=== PATIENT | female | born 1960 | race Caucasian/White ===

== ENCOUNTER 2022-04-26 15:47 | Emergency (ER) | payer BC, SELFPAY ==
[2022-04-26 16:07] VITALS: BP 118/72; PULSE 79; RESP 16; TEMP 36.4; O2SAT 99; BMI 21.3
--- NOTE | 2022-04-26 16:17 | ED_ITS ---
HPI - Back Pain/Injury General Time Seen by Provider: 16:17 Date Seen: 04/26/22 Chief Complaint: Back Injury/Pain Stated Complaint: BACK PAIN Time Seen by Provider: 04/26/22 16:16 Source: patient, RN notes reviewed and old records reviewed Mode of arrival: ambulatory Limitations: no limitations History of Present Illness HPI Narrative: Ivon is a very pleasant 62-year-old female who states she is really quite healthy who comes to the emergency room for evaluation regarding back pain. Ivon states that over the past week she has noticed increasing discomfort and now definitely over the past 48 hours. This is similar to an incident back in 2020 at which time she was evaluated for heart problems. She notes that she was given prednisone and Flexeril and had significant relief of her symptoms. She states that she did have a flare a few months ago and was put into physical therapy which she thinks has helped. She does not know why over the past week and his son the gotten worse. She denies shortness of breath. She notes that this is exactly like the discomfort she experienced before. She has not had any lower extremity edema, fever or chills, lower extremity weakness nausea or vomiting. He has not had any COVID like symptoms. She cannot recall any moment where her back suddenly hurt more. She is requesting prednisone. She does experience spasm when she tries to move and pain is severe at that time. Patient states that the pain wraps around under both of her breast. Again, similar to previous pain. MD elicited complaint: back pain Pertinent past history: prior back pain Onset (ago): day(s) Associated symptoms: denies other symptoms Treatments prior to arrival: heat therapy and NSAIDS Work related injury: No Related Data Home Medications Medication Instructions Recorded Confirmed levothyroxine 88 mcg tablet mcg 04/26/22 Allergies Allergy/AdvReac Type Severity Reaction Status Date / Time lidocaine Allergy Intermediate Rash Verified 04/26/22 16:12 codeine AdvReac Intermediate Verified 04/26/22 16:12 Exam Narrative: Exam Narrative: PAST HISTORY:? Significant for palpitations with negative Holter monitoring, hypothyroidism, history of iron deficiency anemia.? She has had hernia repair, remote tonsillectomy and adenoidectomy and foot surgery. Const: Vital Signs, click to edit/add: Vital Signs - 24 hr 04/26/22 16:07 Temperature 97.6 F Pulse Rate [Pulse Oximeter] 79 Respiratory Rate 16 [facility] 118/72 Pulse Oximetry 99 Oxygen Delivery Me thod Room Air Documenting provider has reviewed patient's vital signs: yes Common normals: no apparent distress, average body habitus, oriented x3, no limitations, healthy appearing, alert and well nourished General appearance: cooperative, comfortable and well kempt HENMT: Common normals: normocephalic and head/scalp atraumatic Head and scalp: normocephalic and atraumatic Eye: Common normals: PERRL General eye: normal appearance of both eyes Pupil: PERRL Neck & C-Spine: Common normals: full ROM and supple Chest: Common normals: palpation of chest normal Resp: Common normals: normal respiratory effort and clear to auscultation bilaterally Effort & inspection: able to speak in complete sentences Auscultation: clear to auscultation bilaterally Cardio: Common normals: regular rate and regular rhythm Rate: regular rate Rhythm: regular rhythm GI: Common normals: soft to palpation Palpation: soft : Common normals: no CVA tenderness Bladder/kidney exam: no CVA tenderness Back & Pelvis: Common normals: no CVA tenderness Thoracic spine/upper back: normal to inspection, pain with ROM and paraspinal muscle tenderness (T5 through T7) Thoracic paraspinal muscle tenderness: bilateral; no thoracic spinal tenderness Lumbar spine/lower back: normal to inspection Extremity: Common normals: normal to inspection Neuro: Common normals: oriented x3 Sensorium/orientation: alert Speech: speech normal Gait (neuro): normal gait Psych: Common normals: mental status grossly normal and thought process normal Appearance: well kempt Thought process: normal thought process Skin: Common normals: no rashes or lesions noted General skin exam: no rashes or lesions noted Course Course Hospital Course: At this time patient appears to have a flare of thoracic back pain. However, she cannot identify any injury or specific moment when her pain was worse. I do feel at her age of 62 we should do a comparative x-ray to ensure that there is no acute thoracic compression fracture. At this time she wishes to hold off on any other medications. Vital Signs Vital signs: Initial Vital Signs Temperature 97.6 F 04/26/22 16:07 Temperature Source Temporal Artery Scan 04/26/22 16:07 Pulse Rate 79 04/26/22 16:07 Respiratory Rate 16 04/26/22 16:07 Blood Pressure 118/72 04/26/22 16:07 Blood Pressure Mean 87 04/26/22 16:07 Blood Pressure Position Supine 04/26/22 16:07 Pulse Oximetry 99 04/26/22 16:07 Oxygen Delivery Method 04/26/22 16:07 Vital Signs Temperature 97.6 F 04/26/22 16:07 Pulse Rate 79 04/26/22 16:07 Respiratory Rate 16 04/26/22 16:07 Blood Pressure 118/72 04/26/22 16:07 Pulse Oximetry 99 04/26/22 16:07 Oxygen Delivery Method 04/26/22 16:07 Temperature 97.6 F 04/26/22 16:07 Pulse Rate 79 04/26/22 16:07 Respiratory Rate 16 04/26/22 16:07 Blood Pressure 118/72 04/26/22 16:07 Pulse Oximetry 99 04/26/22 16:07 Oxygen Delivery Method 04/26/22 16:07 MDM - Back Pain/Injury MDM Narrative Medical decision making narrative: 1. Thoracic spine pain-x-rays do not appear to show any significant compression fracture. It appears to show chronic findings. Patient will start on prednisone 20 mg p.o. b.i.d. x7 days. Will also give Flexeril 10 mg p.o. t.i.d. p.r.n.. Both of these via [employer]. Recommend avoiding alcohol driving or other activities if using the Flexeril as this is sedating. If pain does not improve recommend MRI of the thoracic spine given the sudden return of discomfort. No red flag symptoms today. 2. Disposition-return for worsening symptoms especially loss of bowel or bladder control, lower extremity weakness, fever or chills. Medical Records Attestation: I reviewed the patient's medical records. Imaging Data Thoracic spine: Attestation: I have reviewed the pertinent imaging results. My impression: No acute findings Radiologist's impression: Mild loss of height of the left T7 vertebral body associated with mild scoliosis of the thoracic spine convex towards the right, unchanged from the previous AP view. Mild compression fracture of T7, cannot compared directly with the single view from the previous study, but I suspect that this is a chronic fracture. No sign of any additional compression fractures. Discharge Plan Discharge Clinical Impression: Thoracic back pain Patient Disposition: Home, Self-Care Condition: Unchanged Additional Instructions: Start prednisone 20 mg p.o. twice a day for 5 days. Please take with food or you may also use omeprazole or Pepcid as stomach protection. Flexeril as needed for muscle spasm. Do not use alcohol, drive or participate in activities which could be dangerous to you while on this medication which can be sedating. Prescriptions: No Action levothyroxine 88 mcg tablet Label Comments: TAKE 1 TABLET BY MOUTH BEFORE BREAKFAST Stand Alone Forms: [facility] Info Instructions
--- NOTE | 2022-04-26 16:28 | CRLHL7_ITS ---
For Patients: As a result of the Cures Act, medical imaging exams and procedure reports are released immediately into your electronic medical record. You may view this report before your referring provider. If you have questions, please contact your health care provider. INDICATION: Acute T5 through T7 discomfort. COMPARISON: COMPARISON DATE TECHNIQUE: AP and lateral views of the thoracic spine were obtained along with a cross-table swimmer`s view of the cervicothoracic junction for a total of three views. FINDINGS: There is stable mild loss of T7 vertebral body height on the left associated with mild scoliosis of the mid thoracic spine convex towards the left. This is seen as a mild T7 compression fracture on lateral view. Since I do not have a lateral view for comparison, I cannot state with certainty that this is a stable compression fracture, but the appearance on the AP view suggests that it is stable. The rest of the thoracic vertebral bodies are normal in height with no sign of additional compression fracture. There is mild T7-8 and T8-9 disc degenerative disease, similar appearance to the previous study on the AP view. The rest of the intervertebral discs are normal in height. The visualized portions of the chest are normal in appearance. IMPRESSION: Mild loss of height of the left T7 vertebral body associated with mild scoliosis of the thoracic spine convex towards the right, unchanged from the previous AP view. Mild compression fracture of T7, cannot compared directly with the single view from the previous study, but I suspect that this is a chronic fracture. No sign of any additional compression fractures. Dictated by Mau Kent MD @ 04/26/2022 5:31:29 PM (Electronically Signed)
--- OUTSIDE RECORDS SUMMARY | 2022-04-27 13:54 | XMS_ITS | Clinical Summary ---
:1960 Author Organization [facility] [place] [address] Care Team Providers Name Role Phone [facility] Primary Care Provider Unavailable Allergies Active Allergy Reactions Severity Noted Date Comments Lidocaine-Menthol Rash 07/27/2021 Medications Medication Sig Dispensed Refills Start Date End Date Status Ferrous Sulfate 27 mg Take by mouth. 0 02/26/2021 Active iron tab cholecalciferol Take 1 Capsule 0 02/26/2021 Active (Vitamin D) 1,000 (1,000 units) by unit capsule mouth once daily. valACYclovir TAKE 2 TABLETS AT 0 03/07/2021 Active (VALTREX) 1 gram ONSET AND 12 HOURS tablet LATER TAKE ANOTHER 2 TABLETS hydroquinone 4 % 0 04/29/2021 Ac tive cream pramipexole (MIRAPEX) Take 1 Tablet (0.5 90 tablet. 0 07/27/20 21 Active 0.5 mg mg) by mouth at tabletIndications: bedtime. Restless legs syndrome (RLS) levothyroxine Take 1 Tablet (88 90 Tablet 3 07/27/2021 Active (SYNTHROID) 88 mcg mcg) by mouth tabletIndications: before breakfast. Postablative hypothyroidism nirmatrelvir-ritonavi Take 2 30 Tablet 0 03/23/2022 02 r 300-100mg, EUA, nirmatrelvir 150 2 (PAXLOVID, EUA,) mg pink-oval tabletIndications: tablets and 1 COVID-19 virus ritonavir 100 mg infection white-oval tablet together twice daily for 5 days. Date of Symptom Onset: 03/21/22; gfr good today. Active Problems Problem Noted Date Prediabetes 07/27/2021 Hypertriglyceridemia 07/27/2021 Meningioma 11/07/2015 Overview: Followed by neurosurgery. Needs imaging annually, avoid hormone therapy YADI 08/31/2015 AHI-0, RDI-7 10/27/2015 Restless legs syndrome (RLS) 06/25/2014 Anemia, unspecified 11/17/2012 Overview: EGD 10/2012 normal Colonoscopy 10/2012 normal repeat in 10 y ears HCM 01/26/2006 Overview: colonoscopy 2004 HYPOTHYROIDISM NOS 12/06/2000 Resolved Problems Problem Noted Date Resolved Date Impaired fasting glucose 07/14/2007 07/27/2021 UPPER RESPIRATORY INFECTION - ACUTE 11/02/200412/31 Encounters Date Type Specialty Care Team Description 04/15/2022 Hospital Encounter Carolin Snow MD Lonetti, Jennifer D, PT 04/15/2022 Travel 04/01/2022 Hospital Encounter Carolin Snow MD Lonetti, Jennifer D, PT 04/01/2022 Travel 03/23/2022 Orders Only [facility] 03/23/2022 Orders Only Patricio Salmeron <No scans at tached> MD [facility] 03/23/2022 Travel 03/22/2022 Phone Office Visit Patricio Salmeron Phone Visit (COVID-19 MD [facility] concerns) 03/09/2022 Hospital Encounter Carolin Snow MD Lonetti, Jennifer D, PT 03/09/2022 Travel 02/23/2022 Hospital Encounter Carolin Snow MD Smith, Ryan K, PT 02/23/2022 Travel 02/10/2022 Hospital Encounter Carolin Snow MD Smith, Ryan K, PT 02/10/2022 Travel from Last 3 Months Immunizations Name Administration Dates Next Due Hepatitis B (Peds) 03/29/2003, 08/29/2002, 07/19/2002 Influenza, IIV3 (Age >=3 years) 06/18/2013, 06/12/2012, 04/02, 06/24/2010, 06/18/2003 Influenza, IIV4 06/04/2019, 05/11/2014 Td (Age >=7 Years) 07/27/2021 Tdap 06/24/2010 Zoster (Shingrix-RZV, recombinant) 08/13/2019, 06/06/2019 Family History Medical History Relation Name Comments Heart Disease Brother Diabetes Father Good Health Mother Heart Disease Mother Genetic Other CAD-mother and g randmother,/CAD-mother and grandmother,~col on cancer- MGM~fatehr- DM/CAD-mother an d grandmother,~colon cancer- MGM~fath er- DM Heart Disease Paternal Grandmother Relation Name Status Comments Brother Alive Father Maternal Grandfather Maternal Grandmother Mother Alive Other Paternal Grandfather Paternal Grandmother Social History Tobacco Use Types Packs/Day Years Used Date Never Smoker Smokeless Tobacco: Never Used Tobacco Cessation: Counseling Given: Yes Alcohol Use Standard Drinks/Week Comments Yes 0 (1 standard drink = 0.6 oz pure alcoho l) occasional Alcohol Habits Answer Date Recorded How often do you have a drink containing alcohol? Monthly or less 11/30/2018 How many drinks containing alcohol do you have on a 1 or 2 11/30/2018 typical day when you are drinking? How often do you have six or more drinks on one Never 11/30/2018 occasion? Comment: occasional 12/29/2021 Sex Assigned at Date Recorded Not on file COVID-19 Exposure Response Date Recorded In the last 10 days, have you been in contact with No / Unsu re 04/15/2022 4:51 PM CDT someone who was confirmed or suspected to have Coronavirus/COVID-19? Obstetrics History Last Filed Vital Signs Vital Sign Reading Time Taken Comments Blood Pressure 104/70 12/29/2021 12:48 PM CDT Pulse 74 12/29/2021 12:48 PM CDT Temperature 36.6 ??C (97.8 ??F) 12/29/2021 12:48 PM CDT Respiratory Rate 15 07/27/2021 10:36 AM [employer] Oxygen Saturation 100% 02/26/2021 3:24 PM CDT Inhaled Oxygen Concentration - - Weight 65.8 kg (145 lb) 12/29/2021 12:48 PM CDT Height 167.6 cm (5' 6) 12/29/2021 12:48 PM CDT Body Mass Index 23.4 12/29/2021 12:48 PM CDT Plan of Treatment Upcoming Encounters Date Type Specialty Care Team Description 04/29/20[place] [id number] [place], [place] [phone] (Wo rk) 05/06/2022 [place] [id number] [place], [place] [phone] (Wo rk) Health Maintenance Due Date Last Done Comments COVID-19 vaccine series (#1) 1960 Pap test for age 21-65 08/09/2016 08/09/2013, 01/29/2009 (Completed outside of [facility]) Influenza for age 50-64 04/01/2022 06/04/2019, 05/11/2014, 06/18/2013, Additional history exists Depression screening for age 12+ 07/27/2022 07/27/2021, , 09/08/2017, Additional history exists Mammogram for age 45-75 08/18/2022 08/18/2021, 09/29/2016, 09/02/2015, Additional history exists Colonoscopy through age 75 11/23/2022 11/23/2012 BMI (ht and wt on same day) for 12/29/2022 12/29/2021, 07/02, age 18+ 06/04/2019, Additional history exists Lipids for age 45-75 07/27/2026 07/27/2021, 09/22/2012, 01/29/2009 (Completed outside of [facility]), Additional history exists Tetanus booster 07/27/2031 07/27/2021, 12/14/2010 (Completed outside of [facility]), 06/24/2010 Tdap Completed 06/24/2010 Zoster (shingles) series for age Completed 08/13/2019, 12/2018 50+ Hepatitis C screening for age Completed 07/27/2021 18-79 Procedures Procedure Name Priority Date/Time Associated Diagnosis Comme nts CREATININE,ISTAT Routine 03/23/2022 10:03 AM COVID-19 virus Re sults for this CDT infection procedure are i n the results section. from Last 3 Months Results (ABNORMAL) CREATININE,ISTAT (03/23/2022 10:03 AM CDT) P athologist Signature CREATININE, 0.90 0.57 - 03/23/2022 [facility] POCT 1.11 mg/dL 10:11 AM CDT [facility] Comment: Caution: Patients taking Hydrox yurea have falsely increased iStat Creatinine results. Verify creatinine results order ing a Creatinine (27784.2) eGFR 73 (L) >90 mL/min/1.73m2 03/23/2022 10:11 AM CD T [facility] Comment: As of 2021, eGFR is calcu lated by the CKD-EPI creatinine equation without race adjustment. eGFR can be inf luenced by muscle mass, exercise, and diet. The reported eGFR is an estimation only and is only applicable if the renal function is stable. Specimen Anatomical Collection Method Collection Time Receive d Time (Source) Location / / Volume Laterality Blood BLOOD SPECIMEN / 03/23/2022 10:03 022 Unknown AM CDT 10:11 AM CDT Patricio Salmeron MD CHEMISTRY Performing Organization Address City/State/ZIP Code Phon e Number [facility] [address] [place], [place] [address] CLINIC from Last 3 Months Insurance Payer Benefit Plan / Subscriber ID Effective Dates Phone Addre ss Type Group [id number] 2016-Present [address] [place] [address] Care Teams Latent Print Examiner Relationship Specialty Start Date End Date [facility] PCP - General 11/07/17
== END 2022-04-26 17:43 | disposition home or self-care (01) ==
PROVIDERS: Emergency Provider Family Medicine
DX: M54.6 Pain in thoracic spine (principal)
CPT/HCPCS: 72070; 99283; 99284

== ENCOUNTER 2024-04-28 17:32 | Emergency (ER) | payer OTHER, BC, SELFPAY ==
--- OUTSIDE RECORDS SUMMARY | 2024-04-28 17:35 | XMS_ITS ---
Author Organization [facility] Address [address] [place] [address] [address] [place] [address] Care Team Providers Care In Store Representative Name Role Phone Yves Phill Primary Care Provider [phone] Geoff HERRERA, PhD, Gabino Unavailable Unavai Penelope Wilkerson Unavailable [phone] Encounters Encounter Location Date Provider Diagnosis [facility] [address] [place] [address] 03/21/2024 Penelope Jorgensen Pain in thoracic spine M54.6 and Unspecified thoracic, thoracolumbar and lumbosacral intervertebral disc disorder M51.9 Assessments Encounter Date Diagnosis (ICD Code) Assessment Notes Treat ment Notes Treatment Clinical Notes 03/21/2024 Pain in thoracic spine (ICD-10 - M54.6) 03/21/2024 Unspecified thoracic , thoracolumbar and lumbosacral intervertebral disc disorder (ICD-10 - M51.9) Plan Of Treatment No Information Progress Notes * Gilles DOUGLASB:1960 (64 yo F)Acc No.[id number]:03/21/2024 Daily Note Patient:?Ivon DOUGLAS Provider:?Penelope Jorgensen DPT :1960???Age:64 Y???Sex:Female D ate:03/21/2024 Phone: Address:[facility] [address] [place] [id number] Pcp:Phill Douglas Subjective: * Chief Complaints: * HPI: ???Therapy Visit Status:?Session Data?Date Reviewed?03/21/2024 ?Therapy Episode Status?Discharged or Discharge Plan < 2 visits ?Therapy Sessions Completed (#)?21 ?PT Goal Review Date?03/07/2024 ?OT Goal Review Date?12/28/2023 ???Therapy Visit Subjective:?Pt feels good today, not too sore. Discussed D/C again today, pt wants to wait until after her RFA (morro'd next 03/29) to be done w/ therapy. Will make this appt at a later time but would feel more comfortable waiting until afterwards to D/C. Notes that if she decides to not come in for her final D/C appt she will call and let us know. Objective: * Vitals:? * Examination: ???Functional Exam & Tests: ?Single Leg Stance Test?30 sec Chair Rise Test? * Physical Examination:?Cervical Extension Positioning & Goals:?Positioning?Seat Height?530 ?TDC?51 ?CB?1.4 ?Seat Pad?1 inch pad ?Goals?Low Goal Female (Max 192)?192 ?High Goal Female (Max 222)?222 ???Cervical Extension Exercise Performance:?Exercise?Torque (in-lbs)?132 ?Extension ROM (0)?18 ?Flexion ROM (126)?108 ?Last Rep Status?Met Exertion Goal, Met Repetition Goal ?Exercise Plan?2 x week ???Lumbar Extension Positioning & Goals:?Positioning?TDC?21 ?CB?150 ?Femur?4 ?Seat Pad?1 inch pad ?Goals?Low Goal Female >60age (40%BW)?55 ?High Goal Female>60age (60%BW, Max 150)?82 ???Lumbar Extension Exercise Performance:?Exercise?Torque (ft-lbs)?60 ?Extension ROM (0)?0 ?Flexion ROM (72)?60 ?Repetitions?22 ?Rating of Perceived Exertion (0-10)?10 ?Last Rep Status?Met Exertion Goal, Met Repetition Goal ?Exercise Plan?2 x week ???Torso Rotation Positioning & Goals:?Positioning?Meherrin?1.3 ?Footboard?1 ?Seat Pad?1 inch ?Back Pad?Back Pad 1 inch ?Other?Cervical Roll ?Goals?Low Goal Female >Age 60 (25%BW)?32 ?High Goal Female >Age 60 (30%BW, Max 60)?41 ???Torso Rotation Exercise Performance:?Exercise?Torque (ft-lbs)?35 ?Rotation Left (48)?42 ?Rotation Right (48)?42 ?Left Repetitions?30 ?Right Repetitions?30 ?RPE (0-10)?9 ?Last Rep Status?Met Exertion Goal, Met Repetition Goal ?Exercise Plan?2 x week ???Isotonic Exercise Machine Summary:?Exercise Summary?Worked through all 3 MedX machines today. Pt able to work on increasing/maintaining reps for TR, she is in goal range for this machine, maintained same weight. Maintained same weight for LE today, focused on progressing reps, able to do 22 reps, felt it was more difficult today, performed at TR, that could have impacted this. In goal range for LE. Increased load for CE & went back to 18-108 ROM, focused on increasing reps too.?Pt is still nearing CE goal range, not quite at her end low range yet but slowly progressing loads and is getting closer..?Billing?[id number] (Therapeutic Exercise) Direct 1:1 Time= 30 mins.? Therapeutic Interventions: * Therapeutic Interventions: ???1.?Home Exercise List: Stretches & Releases ? Neck Stretching HEP : Upper Trapezius, Levator Scapulae ? Rwhum-Qdcv-[id number] Stretching HEP : Pectorals- Doorway, Upper Body Mobilization (supine), Scapular and Thoracic Stretch (Needle) - Quadruped ? Low Back and Hip Stretching HEP : Trunk Rotation (supine with arms at 90 degrees palms up) - HOLD due to pain , Cat back- HOLD due to pain, Melissa pose - modified to seated position for rock back/QL ???2.?Home Exercise List: Strength ? Mid-Back Strength HEP : Standing Rows, Pallof Press, Band Pull Apart ? Low Back & Core Strength HEP : Alt Arm & Leg Lift 4-point, Lower Abdominal L3 , Bridges (floor), Lower Abdominal L4 ? Hip & Core Strength HEP : Sit to Stand L1 ? Functional Strength HEP : Lift (no weight and bottom at wall) ???3.?Endurance Training ? Stationary Bike : Performed as a warm up prior to session ???4.?Movement Therapy Summary ? Movement Therapy Details : Pt feels good w/ her HEP, has multiple color therabands at home to progress exercises (yellow, red & green.) Performed 2 fxn'l tests from initial PT eval. Pt plans on D/C'ing next session after her RFA. See in exam section. Pt increased her SLS test & 30 sec chair rise test. Spent additional time reviewing CORE machines, pt has [employer], membership and wanted to see if any machines were comparable. Went through CORE LE, CORE TR & CORE CE. Pt demo'd each of them, took pictures to compare to machines and was educated on proper weight progression and positioning. Also recommended pt talk to staff at [facility], about set-up, instructions, and proper use of their equipment. ? Billing : [id number] (Therapeutic Exercise) Direct 1:1 Time= 25 mins ? Assessment: * Therapy Assessment and Plan: 1.?Therapy Session Assessment ? Summary : Pt is doing well today. After given time to think about her D/C plan, wants to wait to D/C until after her RFA schl'd 03/26, plans on morro'ing her D/C appt for after that date. Feels good about the concept of D/C'ing but wants to progress medX & HEP another time after her RFA. Pt will call in and let us know if this plan changes. Maintained same weights for TR & LE, pt in goal range, and focused on increasing reps. Increased load for CE, still below goal range, able to complete adequate reps. Reviewed gym equipment that pt may have accessible at [facility],, reviewed CORE machines, took pictures of equipment here to compare at her gym. 2.?Therapy Session Plan ? Plan Details : *Patient Valued Goals/Activities: standing, walking,*MD/ANIRUDH Follow Up Plan: after 4-6 weeks,*Visits Need Insurance Auth after: NA,* Incoming Referral Tracking - NO,Plan:- D/C next session - pt will call to schedule, has RFA schl'd on 03/26, prefers to D/C after this, will call to let us know if she plans on not returning- Finalize HEP- Continue progressing MedX Machines (CE/LE/TR) ? * Assessment: 1.?Pain in thoracic spine - M54.6 (Primary)???2.?Unspecified thoracic, thoracolumbar and lumbosacral intervertebral disc disorder - M51.9??? Plan: * Treatment: * Procedure Codes:?40301 Thera peutic Exercise PT, Units: 4.00 , Modifiers: GP , Time (Mins): 702486 * Billing Information: * Visit Code:? * Procedure Codes:? 55778 Therapeutic Exercise PT. Units: 4.00. Time (Mins):55Modifiers: GP * Sign off status: Completed true * Provider:?Penelope Jorgensen DPT Date:? Generated for Sujey whyte/Rosalino/Alka on:?04/28/2024 05:35 PM CDT History and Physical Notes * HPI (History of Present Illness) Category Sub-Category Detail Notes Therapy Visit Status Session Data Today's Session Date : 03/21/2024 Therapy Episode Status: Discharged or Di scharge Plan < 2 visits Therapy Sessions Completed (#): 21 PT Goal Review Date: 03/07/2024 OT Goal Review Date: 12/28/2023 Physical Examination Category Sub-Category Detail Notes Lumbar Extension Exercise Performance Exercise Tor que (ft-lbs): 60 Extension ROM (0): 0 Flexion ROM (72): 60 Repetitions: 22 Rating of Perceived Exertion (0-10): 10 Last Rep Status: Met Exertion Goal, Met Repetition Goal Exercise Plan: 2 x week Lumbar Extension Positioning & Goals Positioning TDC: 21 CB: 150 Femur: 4 Seat Pad: 1 inch pad Goals Low Goal Female >60age (40%BW): 55 High Goal Female>60age (60%BW, Max 150): 82 Isotonic Exercise Machine Summary Billing [id number] (Therapeutic Exercise) Direct 1:1 Time= 30 mins Exercise Summary Worked through all 3 MedX machines today. Pt able to work on increasing/maintaining reps for TR, she is in goal range for this machine, maintained same weight. Maintained same weight for LE today, focused on progressing reps, able to do 22 reps, felt it was more difficult today, performed at TR, that could have impacted this. In goal range for LE. Increased load for CE & went back to 18-108 ROM, focused on increasing reps too. Pt is still nearing CE goal range, not quite at her end low range yet but slowly progressing loads and is getting closer. Cervical Extension Positioning & Goals Positioning Se at Height: 530 TDC: 51 CB: 1.4 Seat Pad: 1 inch pad Goals Low Goal Female (Max 192): 192 High Goal Female (Max 222): 222 Cervical Extension Exercise Performance Exercise T orque (in-lbs): 132 Extension ROM (0): 18 Flexion ROM (126): 108 Last Rep Status: Met Exertion Goal, Met Repetition Goal Exercise Plan: 2 x week Torso Rotation Positioning & Goals Positioning Meherrin: 1.3 Footboard: 1 Seat Pad: 1 inch Back Pad: Back Pad 1 inch Other: Cervical Roll Goals Low Goal Female >Age 60 (25%BW): 32 High Goal Female >Age 60 (30%BW, Max 60) : 41 Torso Rotation Exercise Performance Exercise Torqu e (ft-lbs): 35 Rotation Left (48): 42 Rotation Right (48): 42 Left Repetitions: 30 Right Repetitions: 30 RPE (0-10): 9 Last Rep Status: Met Exertion Goal, Met Repetition Goal Exercise Plan: 2 x week Examination Category Sub-Category Detail Notes Functional Tests Single Leg Stance Test Single L eg Stance Test Description:: Balance test, Stand on one leg with hands on hips. Time begins when foot leaves the ground and ends with touch down, or change in position. < 5 sec predicts falls Left Single Leg Stance Score: Ave 3 Tria ls: 30 Right Single Leg Stance Score: Ave 3 Tri als (sec): 30 30 sec Chair Rise Test 30 sec Chair Rise Test Description: Lower extremity functional strength test. Begin seated with arms crossed on shoulders. Without using arms, sit to stand from 17'' height, reps in 30 sec 30 sec Chair Rise Test Norms: Female Age 60-64: Fall Risk < 12 30 Sec Chair Rise Test Score (reps): 15
--- OUTSIDE RECORDS SUMMARY | 2024-04-28 17:36 | XMS_ITS | Patient Health Record ---
Author Organization [facility] Address [address] [place] [address] [address] [place] [address] Care Team Providers Care Associate Chemist Name Role Phone YvesPhill Primary Care Provider [phone] Geoff HERRERA, PhD, Gabino Unavailable Susannei Thony Alexander Unavailable [phone] Stormy Daria Unavailable [phone] Naz Blackburn Unavailable [phone] Jeramy Hook Unavailable [phone] Bety Durand Unavailable [phone] Eric Gilmore Unavailable [phone] Clarissa Queen Unavailable [phone] Dalia Patel Unavailable [phone] Penelope Jorgensen Unavailable [phone] Allergies Allergen (clinical drug ingredient) Drug/Non Drug Allergy documented on EMR Reaction Allergy Type Onset Date Status lidocaine w/ preservatives (uncoded) Unknown Allergy Active Reason For Referral Reason REHAB PT and OT: MED X LUMBAR May use cervical extension as well. Diagnosis 1 Pain in thoracic spi ne (M54.6) Diagnosis 2 Unspecified thoracic , thoracolumbar and lumbosacral intervertebral disc disorder (M51.9) Referral Organization [facility] Referring Provider First Name Phill Referring Provider Last Name Yves Referring Provider Speciality Occupation al Medicine Referred Organization [facility] Referred Provider Kathy Wiggins Referred Address [address] [place], [place],[address],[place] Referred Provider Specialty Rehabilitati on General Notes Olivia Walsh 11/09/19 02:19:46 PM >BCBS no PA req. OK to schedule, Isaura Logan 11/09/2023 02:49:47 PM >Therapy is scheduled. Referral Priority Routine Medications Medication SIG (Take, Route, Frequency, Duration) Notes Start Date End Date Status Eye Vitamins Active Vitamin D Active Calcium Active Levothyroxine Sodium 88 MCG TAKE 1 TABLET BY MOUTH BEFORE BREAKFAST Oral for 90 Days Active Meloxicam 7.5 MG TAKE 1 TO 2 TABLETS BY MOUTH ONCE DAILY DO NOT TAKE WITH IBUPROFEN Oral for 30 Days Not-Taking TENS/NMES Unit Use as directed Please call patient at [phone]. 01/02/2024 Active Azelastine HCl 137 MCG/SPRAY INHALE 2 SPRAYS INTO AFFECTED NOSTRILS TWO TIMES DAILY Nasal for 25 Days Not-Taking Social History Tobacco Use: Social History Observation Description Date Details (start date - stop date) Never Smoker NA - NA Tobacco Use/Smoking: Question Answer Notes Are you a nonsmoker Alcohol Screen Question Answer Notes Did you have a drink containing alcohol in the p ast year? No Points 0 Interpretation Negative Problems Problem Type SNOMED Code ICD Code Onset Dates Problem Status W/U Status Risk Notes Problem Intervertebral disc disorder (51153474) Unspecified thoracic, thoracolumbar and lumbosacral intervertebral disc disorder (M51.9) Active confirmed Problem Pain in thoracic spine (154846223) Pain in thoracic spine (M54.6) Active confirmed Vital Signs Blood pressure diastolic 72 mm Hg 11/08/2023 Height 65 in 11/08/2023 Blood pressure systolic 126 mm Hg 11/08/2023 Weight 137 lbs 11/08/2023 BMI 22.8 kg/m2 11/08/2023 Encounters Encounter Location Date Provider Diagnosis [facility] [address] [place] [address] 11/08/2023 Phill Yves Pain in thoracic spine M54.6 and Unspecified thoracic, thoracolumbar and lumbosacral intervertebral disc disorder M51.9 [facility] [address] [place] [address] 11/29/2023 Jeramy Catatyanajuana Pain in thoracic spine M54.6 and Unspecified thoracic, thoracolumbar and lumbosacral intervertebral disc disorder M51.9 [facility] [address] [place] [address] 12/01/2023 Dalia Patel Pain in thoracic spine M54.6 and Unspecified thoracic, thoracolumbar and lumbosacral intervertebral disc disorder M51.9 [facility] [address] [place] [address] 12/08/2023 Naz Applebee Pain in thoracic spine M54.6 [facility] [address] [facility] [place] [address] 12/12/2023 Bety Dauner Pain in thoracic spine M54.6 and Unspecified thoracic, thoracolumbar and lumbosacral intervertebral disc disorder M51.9 [facility] [address] [facility] [place] [address] 12/14/2023 Clarissa zzTeachout Pain in thoracic spine M54.6 and Unspecified thoracic, thoracolumbar and lumbosacral intervertebral disc disorder M51.9 [facility] [address] [facility] [place] [address] 12/19/2023 Bety Dauner Pain in thoracic spine M54.6 and Unspecified thoracic, thoracolumbar and lumbosacral intervertebral disc disorder M51.9 [facility] [address] [place] [address] 12/21/2023 Clarissa zzTeachout Pain in thoracic spine M54.6 and Unspecified thoracic, thoracolumbar and lumbosacral intervertebral disc disorder M51.9 [facility] [address] [place] [address] 12/28/2023 Clarissa zzTeachout Pain in thoracic spine M54.6 and Unspecified thoracic, thoracolumbar and lumbosacral intervertebral disc disorder M51.9 [facility] [address] [facility] [place] [address] 12/30/2023 Daria Missling Pain in thoracic spine M54.6 and Unspecified thoracic, thoracolumbar and lumbosacral intervertebral disc disorder M51.9 [facility] [address] [facility] [place] [address] 02/07/2024 Penelope [place] Pain in thoracic spine M54.6 and Unspecified thoracic, thoracolumbar and lumbosacral intervertebral disc disorder M51.9 [facility] [address] [facility] [place] [address] 02/10/2024 Penelope [place] Pain in thoracic spine M54.6 and Unspecified thoracic, thoracolumbar and lumbosacral intervertebral disc disorder M51.9 [facility] [address] [place] [address] 02/13/2024 Clarissa zzTeachout Pain in thoracic spine M54.6 and Unspecified thoracic, thoracolumbar and lumbosacral intervertebral disc disorder M51.9 [facility] [address] [place] [address] 02/16/2024 Eric Deirdre Pain in thoracic spine M54.6 and Unspecified thoracic, thoracolumbar and lumbosacral intervertebral disc disorder M51.9 [facility] [address] [place] [address] 02/21/2024 Penelope Joslyn Pain in thoracic spine M54.6 and Unspecified thoracic, thoracolumbar and lumbosacral intervertebral disc disorder M51.9 [facility] [address] [place] [address] 02/24/2024 Penelope [place] Pain in thoracic spine M54.6 and Unspecified thoracic, thoracolumbar and lumbosacral intervertebral disc disorder M51.9 [facility] [address] [facility] [place] [address] 03/05/2024 Penelope Joslyn Pain in thoracic spine M54.6 and Unspecified thoracic, thoracolumbar and lumbosacral intervertebral disc disorder M51.9 [facility] [address] [place] [address] 03/07/2024 Penelope Joslyn Pain in thoracic spine M54.6 and Unspecified thoracic, thoracolumbar and lumbosacral intervertebral disc disorder M51.9 [facility] [address] [place] [address] 03/12/2024 Penelope Joslyn Pain in thoracic spine M54.6 and Unspecified thoracic, thoracolumbar and lumbosacral intervertebral disc disorder M51.9 [facility] [address] [facility] [place] [address] 03/14/2024 Penelope Joslyn Pain in thoracic spine M54.6 and Unspecified thoracic, thoracolumbar and lumbosacral intervertebral disc disorder M51.9 [facility] [address] [place] [address] 03/19/2024 Penelope Joslyn Pain in thoracic spine M54.6 and Unspecified thoracic, thoracolumbar and lumbosacral intervertebral disc disorder M51.9 [facility] [address] [facility] [facility] [place] [address] 03/21/2024 Penelope [place] Pain in thoracic spine M54.6 and Unspecified thoracic, thoracolumbar and lumbosacral intervertebral disc disorder M51.9 [facility] [address] [place] [address] [address] [place] [address] 10/19/2023 Thony Aldridge [facility] [address] [facility] [place] [address] 12/28/2023 Phill Marinelli Assessments Encounter Date Diagnosis (ICD Code) Assessment Notes Treatment Notes Treatment Clinical Notes 11/08/2023 Unspecified thoracic, thoracolumbar and lumbosacral intervertebral disc disorder (ICD-10 - M51.9) 11/08/2023 Pain in thoracic spine (ICD-10 - M54.6) 11/29/2023 Unspecified thoracic, thoracolumbar and lumbosacral intervertebral disc disorder (ICD-10 - M51.9) 11/29/2023 Pain in thoracic spine (ICD-10 - M54.6) 12/01/2023 Unspecified thoracic, thoracolumbar and lumbosacral intervertebral disc disorder (ICD-10 - M51.9) 12/01/2023 Pain in thoracic spine (ICD-10 - M54.6) 12/08/2023 Pain in thoracic spine (ICD-10 - M54.6) 12/12/2023 Unspecified thoracic, thoracolumbar and lumbosacral intervertebral disc disorder (ICD-10 - M51.9) 12/12/2023 Pain in thoracic spine (ICD-10 - M54.6) 12/14/2023 Unspecified thoracic, thoracolumbar and lumbosacral intervertebral disc disorder (ICD-10 - M51.9) 12/14/2023 Pain in thoracic spine (ICD-10 - M54.6) 12/19/2023 Unspecified thoracic, thoracolumbar and lumbosacral intervertebral disc disorder (ICD-10 - M51.9) 12/19/2023 Pain in thoracic spine (ICD-10 - M54.6) 12/21/2023 Unspecified thoracic, thoracolumbar and lumbosacral intervertebral disc disorder (ICD-10 - M51.9) 12/21/2023 Pain in thoracic spine (ICD-10 - M54.6) 12/28/2023 Unspecified thoracic, thoracolumbar and lumbosacral intervertebral disc disorder (ICD-10 - M51.9) 12/28/2023 Pain in thoracic spine (ICD-10 - M54.6) 12/30/2023 Unspecified thoracic, thoracolumbar and lumbosacral intervertebral disc disorder (ICD-10 - M51.9) 12/30/2023 Pain in thoracic spine (ICD-10 - M54.6) 02/07/2024 Unspecified thoracic, thoracolumbar and lumbosacral intervertebral disc disorder (ICD-10 - M51.9) 02/07/2024 Pain in thoracic spine (ICD-10 - M54.6) 02/10/2024 Unspecified thoracic, thoracolumbar and lumbosacral intervertebral disc disorder (ICD-10 - M51.9) 02/10/2024 Pain in thoracic spine (ICD-10 - M54.6) 02/13/2024 Unspecified thoracic, thoracolumbar and lumbosacral intervertebral disc disorder (ICD-10 - M51.9) 02/13/2024 Pain in thoracic spine (ICD-10 - M54.6) 02/16/2024 Unspecified thoracic, thoracolumbar and lumbosacral intervertebral disc disorder (ICD-10 - M51.9) 02/16/2024 Pain in thoracic spine (ICD-10 - M54.6) 02/21/2024 Unspecified thoracic, thoracolumbar and lumbosacral intervertebral disc disorder (ICD-10 - M51.9) 02/21/2024 Pain in thoracic spine (ICD-10 - M54.6) 02/24/2024 Unspecified thoracic, thoracolumbar and lumbosacral intervertebral disc disorder (ICD-10 - M51.9) 02/24/2024 Pain in thoracic spine (ICD-10 - M54.6) 03/05/2024 Unspecified thoracic, thoracolumbar and lumbosacral intervertebral disc disorder (ICD-10 - M51.9) 03/05/2024 Pain in thoracic spine (ICD-10 - M54.6) 03/07/2024 Pain in thoracic spine (ICD-10 - M54.6) 03/12/2024 Pain in thoracic spine (ICD-10 - M54.6) 03/14/2024 Pain in thoracic spine (ICD-10 - M54.6) 03/19/2024 Pain in thoracic spine (ICD-10 - M54.6) 03/21/2024 Pain in thoracic spine (ICD-10 - M54.6) 03/21/2024 Unspecified thoracic, thoracolumbar and lumbosacral intervertebral disc disorder (ICD-10 - M51.9) 03/19/2024 Unspecified thoracic, thoracolumbar and lumbosacral intervertebral disc disorder (ICD-10 - M51.9) 03/14/2024 Unspecified thoracic, thoracolumbar and lumbosacral intervertebral disc disorder (ICD-10 - M51.9) 03/12/2024 Unspecified thoracic, thoracolumbar and lumbosacral intervertebral disc disorder (ICD-10 - M51.9) 03/07/2024 Unspecified thoracic, thoracolumbar and lumbosacral intervertebral disc disorder (ICD-10 - M51.9) 11/08/2023 Other I, Miko Tolentino , am serving as a scribe to document services personally performed by Phill Marinelli MD, based upon my observations and the provider's statements to me. All documentation has been reviewed by the aforementioned doctor prior to being entered into the official medical record. I, Phill Marinelli MD attest that the above named individual is acting in scribe capacity, has observed my performance of the services and has documented them in accordance with my direction. The documentation recorded by the scribe accurately reflects the service I personally performed and the decisions made by me. Thank you very much Dr. Tellez for kindly referring Ivon to our practice. It is a pleasure to participate in her care. Please feel free to contact me with any questions or concerns. Plan Of Treatment No Information Insurance Providers Payer Name Payer Address Payer Phone Subscriber Number Group Number Insured Name Patient Relationship to Insured Coverage Start Date Coverage End Date [facility] [address] [address] [place] [address] [id number] Ivon Marinelli Self - patient is the insured Medical (General) History Medical History History ICD Code Melanoma Headaches Hernia Thyroid Problems Surgical History Surgery Date(Month/Year) Tonsillectomy Adenoidectomy Foot Right Hernia Hospitalization History Reason Date(Month/Year) Surgical
--- OUTSIDE RECORDS SUMMARY | 2024-04-28 17:36 | XMS_ITS | Clinical Summary ---
Author Organization [facility] Address [place], [place] [address] Care Team Providers Care Environmental Conservation Officer Name Role Phone [facility] Primary Care Provider Unavailabl e Allergies No known active allergies Medications Medication Sig Dispensed Refills Start Date End Date Status cholecalciferol (Vitamin D) 1,000 unit capsule Take 1 Capsule (1,000 units) by mouth once daily. 0 02/26/2021 Active valACYclovir (VALTREX) 1 gram tablet TAKE 2 TABLETS AT ONSET AND 12 HOURS LATER TAKE ANOTHER 2 TABLETS 03/07/2021 Active hydroquinone 4 % cream 04/29/2021 Ac tive vit C,T-Lc-zbrwa-lutein-ze axan (PreserVision AREDS-2) capsule Take 1 Capsule by mouth once daily. 0 09/16/2022 Active azelastine 137 mcg/actuation (ASTELIN) nasal sprayIndications:Nonal lergic rhinitis Inhale 2 Sprays into affected nostril(s) two times daily. 30 mL 6 03/30/2023 Active calcium carbonate (CALCIUM 300 ORAL) Take by mouth. Ac tive cyanocobalamin (Vitamin B-12) 1,000 mcg tabletIndications:Emily min B12 deficiency Take 1 Tablet (1,000 mcg) by mouth once daily. 90 Tablet 3 06/21/2023 Active levothyroxine (SYNTHROID) 88 mcg tabletIndications:Post ablative hypothyroidism TAKE 1 TABLET BY MOUTH BEFORE BREAKFAST 90 Tablet 1 10/27/2023 Active Active Problems Problem Noted Date Diagnosed Date Vitamin B12 deficiency 06/21/2023 Prediabetes 07/27/2021 Hypertriglyceridemia 07/27/2021 Meningioma 11/07/2015 Overview (11/07/2015): Followed by neurosurgery. Needs imaging annually, avoid hormone therapy YADI 08/31/2015 AHI-0, RDI-7 10/27/2015 Restless legs syndrome (RLS) 06/25/2014 Anemia, unspecified 11/17/2012 Overview (11/23/2012): EGD 10/2012 normal Colonoscopy 10/2012 normal repeat in 10 years HCM 01/26/2006 Overview (01/26/2006): colonoscopy 2005 HYPOTHYROIDISM NOS 12/06/2000 Resolved Problems Problem Noted Date Diagnosed Date Resolved Date Impaired fasting glucose 07/14/2007 UPPER RESPIRATORY INFECTION - ACUTE 11/02/2004 01/26/2006 Immunizations Name Administration Dates Next Due Hepatitis B (Peds) 03/29/2003,08/29/2002, 002 Influenza, IIV3 (Age >=3 years) 06/18/20 13,06/12/2012,04/28/2011,06/24/20 10,06/18/2003 Influenza, IIV4 06/04/2019,05/11/2014 Td (Age >=7 Years) 07/27/2021 Tdap 06/24/2010 Zoster (Shingrix-RZV, recombinant) 08/13/2019, Family History Medical History Relation Name Comments Heart Disease Brother Diabetes Father Good Health Mother Heart Disease Mother Genetic Other CAD-mother and grandmother,/CAD-mother and grandmother,~colon cancer- MGM~fatehr- DM/CAD-mother and grandmother,~colon cancer- MGM~father- DM Heart Disease Paternal Grandmother Relation Name Status Comments Brother Alive Father Maternal Grandfather Maternal Grandmother Mother Alive Other Paternal Grandfather Paternal Grandmother Social History Tobacco Use Types Packs/Day Years Used Date Smoking Tobacco: Never Smokeless Tobacco: Never Tobacco Cessation:Counseling Given: Yes Alcohol Use Standard Drinks/Week Comments Yes 0 (1 standard drink = 0.6 oz pur e alcohol) occasional PHQ-2 Answer Date Recorded PHQ-2 TOTAL SCORE 0 09/16/2022 Social Connections Answer Date Recorded Frequency of Communication with Friends and Fami ly Not on file 07/23/2021 Financial Resource Strain Answer Date R ecorded Difficulty of Paying Living Expenses Not on file 07/23/2021 Difficulty of Paying Living Expenses Not on file 07/23/2021 Sex and Gender Information Value Date Recorded Sex Assigned at Not on file Gender Identity Not on file Sexual Orientation Not on file Obstetrics History Last Filed Vital Signs Vital Sign Reading Time Taken Comments Blood Pressure 118/70 06/20/2023 2:42 PM VASCULAR TECHNOLOGIST Pulse 76 06/20/2023 2:42 PM VASCULAR TECHNOLOGIST Temperature 36.6 ??C (97.8 ??F) 12/29/2021 12:48 PM C DT Respiratory Rate 16 03/30/2023 10:34 AM CDT Oxygen Saturation 94% 06/20/2023 2:42 PM VASCULAR TECHNOLOGIST Inhaled Oxygen Concentration - - Weight 60.6 kg (133 lb 9.6 oz) 06/20/2023 2:42 P M VASCULAR TECHNOLOGIST Height 165.1 cm (5' 5) 03/30/2023 10:34 AM CDT Body Mass Index 22.23 03/30/2023 10:34 AM CDT Plan of Treatment Health Maintenance Due Date Last Done Comments HIV for age 15-65 1976 Pap test for age 21-65 08/09/2016 4, 01/29/2009 (Completed outside of [facility]) Depression screening for age 12+ 09/20/2023 09/20/2022, 09/16/2022, 07/27/2021, Additional history exists BMI (ht and wt on same day) for age 18+ 03/30/2024 03/30/2023, 09/16/2022, 12/29/2021, Additional history exists COVID-19 vaccine series (2022- season) 2024 Influenza for age 50-64 04/01/2024 06/04/20 19, 05/11/2014, 06/18/2013, Additional history exists Mammogram for age 45-75 01/18/2025 01/19/20, 12/16/2021, 08/18/2021, Additional history exists Fecal testing sDNA-FIT (Cologuard) for age 45-75 07/13/2026 07/13/2023 Lipids for age 45-75 09/16/2027 09/16/2022, 07/27/2021, 09/22/2012, Additional history exists Tetanus booster 07/27/2031 07/27/2021, 11/29 ([facility]), 06/24/2010 Tdap Completed 06/24/2010 Zoster (shingles) series for age 50+ Completed 08/13/2019, 06/06/2019 Hepatitis C screening for age 18-79 Completed 07/27/2021 Pneumococcal series for age 6-64 Aged Out No longer eligible based on patient's age to complete this topic Procedures Procedure Name Priority Date/Time Associated Diagnosis Comments XR MAMMO THIERRY BILAT SCREEN Routine 01/19/2024 3:23 PM CDT Screening breast examination SDNA-FIT EXTERNAL (COLOGUARD) Routine 07/13/2023 6:15 AM VASCULAR TECHNOLOGIST Screening for colon cancer LC LIPID PANEL AND CHOL/HDL RATIO Routine 09/16/2022 4:27 PM VASCULAR TECHNOLOGIST Hypertriglyceridemia ANTI HCV Routine 07/27/2021 11:15 AM VASCULAR TECHNOLOGIST Need for hepatitis C screening test from Last 3 Months or Most Recently Relevant to Health Maintenance Results * XR MAMMO THIERRY BILAT SCREEN (01/19/2024 3:23 PM CDT) Anatomical Region Laterality Modality BREASTS, Breast Left, Breast Right Bilateral Mammography 01/19/2024 3:23 PM CDT Impressions 01/20/2024 8:48 AM CDT IMPRESSION: No concerning mammographic findings. Recommend routine annual screening mammography. When performed, computer-aided detection was used in the interpretation of this study. ACR BI-RADS Category 1: Negative. A lay language report of this examination will be mailed to the patient. LIFETIME BREAST CANCER RISK ASSESSMENT SCORE: Lifetime risk of developing breast cancer is 7.7% calculated using the Davina Model and information provided by the patient at the time of screening. The average lifetime risk for developing breast cancer is 12.9% for women born in the [place]. For patients with a lifetime breast cancer risk assessment score of less than 20%, annual screening mammography is recommended. For patients with a lifetime risk of greater than 20%, annual screening mammography supplemented with annual Breast MRI is recommended. Patients in this category are encouraged to discuss this recommendation with their healthcare provider to determine if Breast MRI is appropriate and if so, to obtain a referral and confirm coverage with their health insurance. Recommendations are based on the [place] [employer] Appropriateness Criteria. Patients with a BI-RADS category of 0 should follow the recommendations for further evaluation before considering supplemental screening. Narrative 01/20/2024 8:48 AM CDT EXAM: MAMMOGRAM SCREENING THIERRY BILATERAL LOCATION: [facility] DATE: 01/19/2024 INDICATION: Asymptomatic. Screening Mammogram. COMPARISON: 01/11/23, 12/16/21 BREAST DENSITY: There are scattered areas of fibroglandular density. FINDINGS: Tomosynthesis craniocaudal and mediolateral oblique views were obtained. There is no evidence for spiculated masses, architectural distortion, asymmetry or suspicious calcifications. Procedure Note Raul Clemente MD - 01/20/2024 EXAM: MAMMOGRAM SCREENING THIERRY BILATERAL LOCATION: [facility] DATE: 01/19/2024 INDICATION: Asymptomatic. Screening Mammogram. COMPARISON: 01/11/23, 12/16/21 BREAST DENSITY: There are scattered areas of fibroglandular density. FINDINGS: Tomosynthesis craniocaudal and mediolateral oblique views were obtained. There is no evidence for spiculated masses, architectural distortion, asymmetry or suspicious calcifications. IMPRESSION: IMPRESSION: No concerning mammographic findings. Recommend routine annual screening mammography. When performed, computer-aided detection was used in the interpretation of this study. ACR BI-RADS Category 1: Negative. A lay language report of this examination will be mailed to the patient. LIFETIME BREAST CANCER RISK ASSESSMENT SCORE: Lifetime risk of developing breast cancer is 7.7% calculated using the Davina Model and information provided by the patient at the time of screening. The average lifetime risk for developing breast cancer is 12.9% for women born in the [place]. For patients with a lifetime breast cancer risk assessment score of less than 20%, annual screening mammography is recommended. For patients with a lifetime risk of greater than 20%, annual screening mammography supplemented with annual Breast MRI is recommended. Patients in this category are encouraged to discuss this recommendation with their healthcare provider to determine if Breast MRI is appropriate and if so, to obtain a referral and confirm coverage with their health insurance. Recommendations are based on the [employer] Appropriateness Criteria. Patients with a BI-RADS category of 0 should follow the recommendations for further evaluation before considering supplemental screening. Alycia Senior DO MAMMO * SDNA-FIT EXTERNAL (COLOGUARD) (07/13/2023 6:15 AM VASCULAR TECHNOLOGIST) NONINV COLON CA DNA+OCC BLD SCRN STL-IMP Negative Negative 07/20/2023 12:09 AM VASCULAR TECHNOLOGIST [facility] (CLIA #:[id number]) Comment: NEGATIVE TEST RESULT. A negative Cologuard result indicates a low likelihood that a colorectal cancer (CRC) or advanced adenoma (adenomatous polyps with more advanced pre-malignant features) ??is present. The chance that a person with a negative Cologuard test has a colorectal cancer is less than 1 in 1500 (negative predictive value >99.9%) or has an ??advanced adenoma is less than ??5.3% (negative predictive value 94.7%). These data are based on a prospective cross-sectional study of 10,000 individuals at average risk for colorectal cancer who were screened with both Cologuard and colonoscopy. (Shoaib Beauchamp al, N Engl J Med 2014;370(14):1286- 1297) The normal value (reference range) for this assay is negative. COLOGUARD RE-SCREENING RECOMMENDATION: Periodic colorectal cancer screening is an important part of preventive healthcare for asymptomatic individuals at average risk for colorectal cancer. ??Following a negative Cologuard result, the [place] [employer] and U.S. Multi-Society Task Force screening guidelines recommend a Cologuard re-screening interval of 3 years. References: [place] [employer] Guideline for Colorectal Cancer Screening: https://www.cancer.org/cancer/zfyvo-bpiods-eoyfvx/hjjsppmoy-uvlhqpfpe-jgerigk/ac s-rec ommendations.html.; Christiano RUTHERFORD, Tyesha MAYBERRY, Barry HILL, Colorectal Cancer Screening: Recommendations for Physicians and Patients from the U.S. Multi-Society Task Force on Colorectal Cancer Screening , Am J Gastroenterology 2017; 112:5125-1473. TEST DESCRIPTION: Composite algorithmic analysis of stool DNA-biomarkers with hemoglobin immunoassay. ?? Quantitative values of individual biomarkers are not reportable and are not associated with individual biomarker result reference ranges. Cologuard is intended for colorectal cancer screening of adults of either sex, 45 years or older, who are at average-risk for colorectal cancer (CRC). Cologuard has been approved for use by the U.S. FDA. The performance of Cologuard was established in a cross sectional study of average-risk adults aged 50-84. Cologuard performance in patients ages 45 to 49 years was estimated by sub-group analysis of near-age groups. Colonoscopies performed for a positive result may find as the most clinically significant lesion: colorectal cancer [4.0%], advanced adenoma (including sessile serrated polyps greater than or equal to 1cm diameter) [20%] or non- advanced adenoma [31%]; or no colorectal neoplasia [45%]. These estimates are derived from a prospective cross-sectional screening study of 10,000 individuals at average risk for colorectal cancer who were screened with both Cologuard and colonoscopy. (Shoaib Loza et al, N Engl J Med 2014;370(14):9730-3196.) Cologuard may produce a false negative or false positive result (no colorectal cancer or precancerous polyp present at colonoscopy follow up). A negative Cologuard test result does not guarantee the absence of CRC or advanced adenoma (pre-cancer). The current Cologuard screening interval is every 3 years. ([place] [employer] and U.S. Multi-Society Task Force). Cologuard performance data in a 10,000 patient pivotal study using colonoscopy as the reference method can be accessed at the following location: www.Mundi/results. Additional description of the Cologuard test process, warnings and precautions can be found at www.Arkeord.com. Stool specimen (specimen) (Rectum) 07/13/2023 6:15 AM VASCULAR TECHNOLOGIST 07/14/2023 6:44 PM VASCULAR TECHNOLOGIST Alycia Senior DO URINE IMS[facility]outing (CLIA #:[id number]) [place] [address], * (ABNORMAL) LC LIPID PANEL AND CHOL/HDL RATIO (09/16/2022 4:27 PM [facility]) [facility] Cholesterol, Total 175 100 - 199 mg/dL 09/18/2022 11:08 AM [facility] Triglycerides 154(H) 0 - 149 mg/dL 09/18/2022 11:08 AM [facility] HDL Cholesterol 50 >39 mg/dL 11:08 AM [facility] VLDL Cholesterol Shawn 27 5 - 40 mg/dL 09/18/2022 11:08 AM [facility] LDL Chol Calc ([facility]) 98 0 - 99 mg/dL 09/18/2022 11:08 AM [facility] T. Chol/HDL Ratio 3.5 0.0 - 4.4 ratio 09/18/2022 11:08 AM [facility] Comment: ?T. Chol/HDL Ratio ?Men ??Women ?1/2 Avg.Risk ??3.4 ?3.3 ?Avg.Risk ??5.0 ?4.4 ? 2X Avg.Risk ??9.6 ?7.1 ? 3X Avg.Risk 23.4 ?? 11.0 Blood BLOOD SPECIMEN / Unknown Venipuncture / Unknown 09/16/2022 4:27 PM VASCULAR TECHNOLOGIST 09/16/2022 4:27 PM VASCULAR TECHNOLOGIST Narrative [facility] ([facility]) - 09/18/2022 11:08 AM VASCULAR TECHNOLOGIST Performed at: ??01 - [facility] [place], [place] [id number] Sap Bw Developer: Escobar Ariza MD, Phone: ??[phone] Alycia Senior DO SEND OUTS [facility] ([facility]) [address] [place] [address] * ANTI HCV (07/27/2021 11:15 AM VASCULAR TECHNOLOGIST) HEPATITIS C ANTIBODY Non-React polina Non-React polina 07/27/2021 3:34 PM VASCULAR TECHNOLOGIST [facility] Comment:Antibodies to HCV no t detected; does not exclude the possibility of exposure to HCV. Blood BLOOD SPECIMEN / Unknown Venipuncture / Unknown 07/27/2021 11:15 AM VASCULAR TECHNOLOGIST 07/27/2021 11:15 AM VASCULAR TECHNOLOGIST Alycia Senior DO SEND OUTS [email or web address] [address] [place] [address], [place] from Last 3 Months or Most Recently Relevant to Health Maintenance Care Teams Environmental Conservation Officer Relationship Specialty Start Date End Date [facility] PCP - General 11/07/17
--- OUTSIDE RECORDS SUMMARY | 2024-04-28 17:36 | XMS_ITS | Referral Summary ---
Author Organization [facility] Address [address] [place] [id number] Care Team Providers Care Retail Pharmacist Name Role Phone Kamaljit Daley MD Unavailable Allergies Active Allergy Reactions Criticality Noted Date Comments Lidocaine-Menthol Rash Low 07/27/2021 Medications Medication Sig Dispensed Refills Start Date End Date Status Nirmatrelvir-Ritona vir (PAXLOVID, 300/100, PO) TAKE 2 NIRMATRELVIR 150 MG PINK-OVAL TABLETS AND 1 RITONAVIR 100 MG WHITE-OVAL TABLET TOGETHER TWICE DAILY FOR 5 DAYS 03/23/2022 Active cholecalciferol (VITAMIN D3) 25 mcg (1000 units) capsule Take 1,000 Units by mouth 02/26/2021 Active hydroquinone (SKINNY) 4 % external cream 04/29/2021 Active levothyroxine (SYNTHROID/LEVOTHRO ID) 88 MCG tablet TAKE 1 TABLET BY MOUTH BEFORE BREAKFAST 08/29/2022 Active meloxicam (MOBIC) 7.5 MG tablet Take 1 tablet by mouth 2 times daily 06/22/2022 Active Multiple Vitamins-Minerals (PRESERVISION AREDS 2) CAPS Take 1 capsule by mouth daily 09/16/2022 Active pramipexole (MIRAPEX) 0.5 MG tablet Take 0.5 mg by mouth At Bedtime 09/16/2022 Active predniSONE (DELTASONE) 20 MG tablet TAKE 2 TABLETS BY MOUTH ONCE DAILY FOR 2 DAYS THEN 1 ONCE DAILY FOR 5 DAYS 09/07/2022 Active valACYclovir (VALTREX) 1000 mg tablet TAKE 2 TABLETS AT ONSET AND 12 HOURS LATER TAKE ANOTHER 2 TABLETS 03/07/2021 Active Social History Tobacco Use Types Packs/Day Years Used Date Smoking Tobacco: Never Smokeless Tobacco: Never Tobacco Cessation:Counseling Given: Not Answered PHQ-2 Answer Date Recorded PHQ-2 Score 0 11/02/2022 Adolescent Education Answer Date Record ed Getting School Help Needed Not on file 04/23 Sex and Gender Information Value Date Recorded Sex Assigned at Not on file Gender Identity Not on file Sexual Orientation Not on file Last Filed Vital Signs Vital Sign Reading Time Taken Comments Blood Pressure - - Pulse - - Temperature - - Respiratory Rate - - Oxygen Saturation - - Inhaled Oxygen Concentration - - Weight 63.5 kg (140 lb) 10/07/2022 8:04 AM HISTORICAL ARCHEOLOGIST Height 163 cm (5' 4.17) 10/07/2022 8:04 AM HISTORICAL ARCHEOLOGIST Body Mass Index 23.9 10/07/2022 8:04 AM HISTORICAL ARCHEOLOGIST Plan of Treatment Not on file Care Teams Retail Pharmacist Relationship Specialty Start Date End Date Kamaljit Daley MD [address] [place] [address] Assigned Musculoskeletal Provider 10/16/22
--- OUTSIDE RECORDS SUMMARY | 2024-04-28 17:36 | XMS_ITS ---
Author Organization [facility] Address [address] [place] [address] [address] [place] [address] Care Team Providers Care Inspector Final Assembly Electrical Name Role Phone Phill Douglas Primary Care Provider [phone] Geoff HERRERA, PhD, Gabino Unavailable Unavai Penelope Wilkerson Unavailable [phone] Encounters Encounter Location Date Provider Diagnosis [facility] [address] [place] [address] 03/14/2024 Penelope Jorgensen Pain in thoracic spine M54.6 and Unspecified thoracic, thoracolumbar and lumbosacral intervertebral disc disorder M51.9 Assessments Encounter Date Diagnosis (ICD Code) Assessment Notes Treat ment Notes Treatment Clinical Notes 03/14/2024 Pain in thoracic spine (ICD-10 - M54.6) 03/14/2024 Unspecified thoracic , thoracolumbar and lumbosacral intervertebral disc disorder (ICD-10 - M51.9) Plan Of Treatment No Information Progress Notes * MISAEL GillesB:1960 (64 yo F)Acc No.[id number]:03/14/2024 Daily Note Patient:?Ivon DOUGLAS Provider:?Penelope Jorgensen DPT?Resou rce:Bhanu Sawyer :1960???Age:64 Y???Sex:Female D ate:03/14/2024 Phone: Address:[facility] [address] [place] [id number] Pcp:Phill Douglas Subjective: * Chief Complaints: * HPI: ???Therapy Visit Status:?Session Data?Date Reviewed?03/14/2024 ?Therapy Episode Status?Active ?Therapy Sessions Completed (#)?19 ?PT Goal Review Date?03/07/2024 ?OT Goal Review Date?12/28/2023 ???Therapy Visit Subjective:?Pt has some elevated soreness, describes DOMS. Pt understands the process of D/C in in place. Objective: * Vitals:? * Physical Examination:?Cervical Extension Positioning & Goals:?Positioning?Seat Height?530 ?TDC?51 ?CB?1.4 ?Seat Pad?1 inch pad ?Goals?Low Goal Female (Max 192)?192 ?High Goal Female (Max 222)?222 ???Cervical Extension Exercise Performance:?Exercise?Torque (in-lbs)?123 ?Extension ROM (0)?18 Pt was doing 9 degrees of ext but was sore today, wanted to do less ?Flexion ROM (126)?108 ?Repetitions?30 ?RPE (0-10)?8 ?Last Rep Status?Met Exertion Goal, Met Repetition Goal ?Exercise Plan?2 x week ???Lumbar Extension Positioning & Goals:?Positioning?TDC?21 ?CB?150 ?Femur?4 ?Seat Pad?2 inch pad ?Goals?Low Goal Female >60age (40%BW)?55 ?High Goal Female>60age (60%BW, Max 150)?82 ???Lumbar Extension Exercise Performance:?Exercise?Torque (ft-lbs)?60 ?Extension ROM (0)?0 ?Flexion ROM (72)?60 ?Repetitions?20 ?Rating of Perceived Exertion (0-10)?9.5 ?Last Rep Status?Met Exertion Goal, Met Repetition Goal ?Exercise Plan?2 x week ???Torso Rotation Positioning & Goals:?Positioning?[place]?1.3 ?Footboard?1 ?Seat Pad?1 inch ?Back Pad?Back Pad 1 inch ?Other?Cervical Roll ?Goals?Low Goal Female >Age 60 (25%BW)?32 ?High Goal Female >Age 60 (30%BW, Max 60)?41 ???Torso Rotation Exercise Performance:?Exercise?Torque (ft-lbs)?35 ?Rotation Left (48)?42 ?Rotation Right (48)?42 ?Left Repetitions?20 ?Right Repetitions?20 ?RPE (0-10)?9.5 ?Last Rep Status?Met Exertion Goal, Met Repetition Goal ?Exercise Plan?2 x week ???Isotonic Exercise Machine Summary:?Billing?[id number] (Therapeutic Exercise) Direct 1:1 Time= 30 mins.? Therapeutic Interventions: * Therapeutic Interventions: ???1.?Home Exercise List: Stretches & Releases ? Neck Stretching HEP : Upper Trapezius, Levator Scapulae ? Tfrst-Vjpw-Mfnvlmsx Stretching HEP : Pectorals- Doorway, Upper Body [...] Therapy Summary ? Movement Therapy Details : Reviewed for form:-Low abs lvl 3-30# band rows and pulldowns-RTB pull aparts ? Billing : [id number] (Therapeutic Exercise) Direct 1:1 Time= 10 mins ? Assessment: * Therapy Assessment and Plan: 1.?Therapy Session Assessment ? Summary : PT NWL in both Med-X, this coupled with a robustly progressed HEP at this point certainly bodes well for a D/C in the next 3-4 visits and should be considered. 2.?Therapy Session Plan ? Plan Details : *Patient Valued Goals/Activities: standing, walking,*MD/ANIRUDH Follow Up Plan: after 4-6 weeks,*Visits Need Insurance Auth after: NA,* Incoming Referral Tracking - NO,Plan:- Continue progressing MedX machines (CE/LE/RT) as tolerated - pt feels they have been getting more challenging- Progress/modify HEP flowsheet, can decrease # of exercises, progress other exercises- Reminded pt to take pics of gym equipment 3.?Co-Signing Status ? WEB CONTENT EXECUTIVE Supervision : WEB CONTENT EXECUTIVE Direct Supervision: The therapy session was supervised by a licensed PT in accordance to [place] Board of PT statutes and rules 148.706 as an on-site observation of the treatment provided by WEB CONTENT EXECUTIVE and the plan of care was reviewed as appropriate. ? * Assessment: 1.?Pain in thoracic spine - M54.6 (Primary)???2.?Unspecified thoracic, thoracolumbar and lumbosacral intervertebral disc disorder - M51.9??? Plan: * Treatment: * Procedure Codes:?20269 Thera peutic Exercise WEB CONTENT EXECUTIVE, Units: 3.00 , Modifiers: GP , CQ, Time (Mins): 168218 * Billing Information: * Visit Code:? * Procedure Codes:? 41368 Therapeutic Exercise WEB CONTENT EXECUTIVE. Units: 3.00. Time (Mins):40Modifiers: GP, CQ * Electronically co-signed by Penelope Jorgensen DPT on 03/15/2024 at 06:56 AM CDT Sign off status: Completed true * Provider:?Penelope Jorgensen DPT Date:? Generated for Sujey whyte/Rosalino/eTransmitting on:?04/28/2024 05:35 PM CDT History and Physical Notes * HPI (History of Present Illness) Category Sub-Category Detail Notes Therapy Visit Status Session Data Today's Session Date : 03/14/2024 Therapy Episode Status: Active Therapy Sessions Completed (#): 19 PT Goal Review Date: 03/07/2024 OT Goal Review Date: 12/28/2023 Physical Examination Category Sub-Category Detail Notes Lumbar Extension Exercise Performance Exercise Tor que (ft-lbs): 60 Extension ROM (0): 0 Flexion ROM (72): 60 Repetitions: 20 Rating of Perceived Exertion (0-10): 9.5 Last Rep Status: Met Exertion Goal, Met Repetition Goal Exercise Plan: 2 x week Lumbar Extension Positioning & Goals Positioning TDC: 21 CB: 150 Femur: 4 Seat Pad: 2 inch pad Goals Low Goal Female >60age (40%BW): 55 High Goal Female>60age (60%BW, Max 150): 82 Isotonic Exercise Machine Summary Billing [id number] (Therapeutic Exercise) Direct 1:1 Time= 30 mins Cervical Extension Positioni ng & Goals Positioning Seat Height: 530 TDC: 51 CB: 1.4 Seat Pad: 1 inch pad Goals Low Goal Female (Max 192): 192 High Goal Female (Max 222): 222 Cervical Extension Exercise Performance Exercise T orque (in-lbs): 123 Extension ROM (0): 18 Pt was doing 9 deg vero of ext but was sore today, wanted to do less Flexion ROM (126): 108 Repetitions: 30 RPE (0-10): 8 Last Rep Status: Met Exertio n Goal, Met Repetition Goal Exercise Plan: 2 x week Torso Rotation Positioning & Goals Positioning Ple[place]: 1.3 Footboard: 1 Seat Pad: 1 inch Back Pad: Back Pad 1 inch Other: Cervical Roll Goals Low Goal Female >Age 60 (25%BW): 32 High Goal Female >Age 60 (30%BW, Max 60) : 41 Torso Rotation Exercise Performance Exercise Torqu e (ft-lbs): 35 Rotation Left (48): 42 Rotation Right (48): 42 Left Repetitions: 20 Right Repetitions: 20 RPE (0-10): 9.5 Last Rep Status: Met Exertion Goal, Met Repetition Goal Exercise Plan: 2 x week
--- OUTSIDE RECORDS SUMMARY | 2024-04-28 17:36 | XMS_ITS | Data Portability ---
Author Organization [facility] [employer], [id number] Address [address] [facility] [address] [place] [address] Assessment No assessment recorded. Plan of Treatment Reminders Order Date Submit Date Provider Last Modified By Organization Details Last Modified Time Details Appointments None recorded. Lab thyroid cascade, serum 2020 [facility], [address] [place], [address], 21:49:06 Referral None recorded. Procedures venipunctur e routine (PROC) 2020 Not available 16:32:50 Surgeries None recorded. Imaging None recorded. Medication Orders prednisone 20 mg tablet 2020 [facility], [address] [place], [address], 16:55:33 levothyroxi ne 88 mcg tablet 2020 [facility] [address] [place], [address], 16:46:32 Patient TargetsNo targets recorded. Patient Instructions Encounter Date Encounter Id Patient Instructions Last Modified By Organization Details Last Modified Time 06/16/2021 [id number] handling fee* [email or web address] Not available 1 08/16/2020 16:32:50 Reason for Referral None Reported. Results Created Date Observation Date Name Description Value Unit Range Abnormal Flag Note LastModifiedBy Organization Detail LastModifiedTime 06/16/20 21 06/16/2021 THYRO ID CASCA DE TSH 0.153 uIU/m L 0.358- 3.740 low This TSH has refle xed to addit ional thyro id testi ng. Addit ional charg es will apply . Not Available [facility] [address], [place], [address], 06/16/2021 21:49:06 06/16/20 21 06/16/2021 T4 FREE T4 free 1.52 NG/dL 0.76-1 .46 high Not Available [facility] [address], [place], [address], 06/16/2021 22:05:04 06/16/20 21 06/16/2021 T3 FREE T3 free 3.43 pg/mL 2.18-3 .98 Not Available [facility] [address], [place], [address], 06/16/2021 22:08:19 12/17/19 22 12/16/2021 MAMMO , sandro lehman, bilat eral No observ ation record ed. [address]/[facility] (Centralized Fax Number) [phone] [place], [address], 12/16/2021 17:56:14 01/13/20 23 01/11/2023 MAMMO sandro, bilat eral No observ ation record ed. [address]/[facility] (Centralized Fax Number) [phone] [place], [address], 01/12/2023 12:27:46 Result Notes None recorded. Problems Name Problem SNOMED Code Status Onset Date Resolution Date Notes Provider Name and Address Organization Details Recorded Time Restless legs 94396118 Active Not Available [facility] 0 14:08:47 Disorder of thyroid gland 68893804 Active Not Available [facility] 0 14:08:49 Polyp of colon 59742735 Active Woodrow Shaw(JAMAL Dk) null, [facility] [employer] 1 12:32:34 Problem Notes None recorded. Procedures Surgical History Date Name Laterality Status Provider Name and Address Organization Details Recorded Time 01/12/20 23 Date of Last Mammogram completed Shelly Zuleta [facility] [employer] 01/12/2023 12:28:08 08/26/19 18 Date of Last Pap Smear completed Woodrow Shaw(TERM) [facility] [employer] 06/16/2021 12:34:36 08/01/19 13 Date of Last Colonoscopy completed Woodrow Shaw(TERM) [facility] [employer] 06/16/2021 12:34:07 Unlisted px foot/toes completed Not Available [facility] 03/07/2020 07:37:42 hernia repair completed Not Available [facility] 03/07/2020 07:37:42 tonsillectomy completed Not Available [facility] 03/07/2020 07:37:42 Imaging Results Imaging Date Name Status LastModified by Organiz ation Details LastModified Time 12/16/2021 MAMMO, screening, bilateral completed [address]/[place] (Centralized Fax Number) [phone] [place], [address], 12/16/2021 17:56:14 01/11/2023 MAMMO, screening, bilateral completed [address]/[place] (Centralized Fax Number) [phone] [place], [address], 01/12/2023 12:27:46 Procedure Notes None recorded. Medical Equipment None Reported. Allergies No known drug allergies Medications Name Sig Start Date Stop Date Status Note LastModified by Organization Details LastModified Time cyclobenz aprine 10 mg tablet TAKE 1 TABLET BY MOUTH THREE TIMES DAILY NEEDED 06/16 completed Not Available Not Available Not Available valacyclo vir 1 gram tablet TAKE 2 TABLETS AT ONSET AND 12 HOURS LATER TAKE ANOTHER 2 TABLETS active Not Available Not Available No t Available hydroquin one 4 % topical cream active Not Available Not Available Not Available prednison e 20 mg tablet TAKE 1 TABLET BY MOUTH TWICE DAILY FOR 5 DAYS active Not Available Not Available No t Available omeprazol e 40 mg capsule,d elayed release TAKE 1 CAPSULE BY MOUTH ONCE DAILY active Not Available Not Available No t Available levothyro xine 88 mcg tablet Take 1 tablet my mouth once daily 2020 active Upcoming annual 06/16/21 Not Available Not Available Not Available iron active Not Available Not Availa ble Not Available COVID-19 test specimen collectio n USE 1 KIT TODAY DIRECTED 06/16 completed Not Available Not Available Not Available Vitals Date Recorded Body weight Body mass index (BMI) Body height Heart rate Systolic blood pressure Diastolic blood pressure Provider Name and Address Organization Details Last Updated DateTime 1 28478.2 2 g 25.9 kg/m2 167.64 cm 83 /min 131 mm[Hg] 79 mm[Hg] Woodrow Shaw(T ERM) [facility] [employer] 16:24:36 Social History Question Answer Notes LastModified by Organizat ion Details LastModified Time Tobacco Smoking Status Never Smoker Woodrow Shaw(TERM) null, [facility] [employer] 06/16/2021 12:36:00 Do You Have An Advance Directive? No Information not available 06/16/2021 What Is Your Level Of Alcohol Consumption? Occasional Alcohol [email or web address] Information not available 06/16/2021 Is Blood Transfusion Acceptable In An Emergency? Yes [email or web address] Information not available 06/16/2021 What Is Your Level Of Caffeine Consumption? None Caffeine Information not available 03/07/2020 What Type Of Diet Are You Following? REGULAR [email or web address] Information not available 06/16/2021 History Of Domestic Violence No Denies Domestic Violence Information not available 03/07/2020 Marital Status Caffeine Informatio n not available 06/16/2021 What Was The Date Of Your Most Recent Tobacco Screening? 06/16/2021 [email or web address] Information not available 06/16/2021 Performs Monthly Self-breast Exam? No Monthly Self Breast Exam- No Information not available 06/16/2021 Do You Use Protection During Sex? No Information not available 06/16/2021 What Is Your Relationship Status? [email or web address] Information not available 06/16/2021 Do You Use Your Seat Belt Or Car Seat Routinely? Yes [email or web address] Information not available 06/16/2021 Are You Sexually Active? Yes Currently Sexually Active Information not available 06/16/2021 Do You Have Smoke And Carbon Monoxide Detectors In Your Home? Yes Information not available 06/16/2021 Are You Passively Exposed To Smoke? No Information not available 06/16/2021 Do You Use Any Illicit Or Recreational Drugs? No Information not available 06/16/2021 Has Tobacco Cessation Counseling Been Provided? No Information not available 06/16/2021 Do You Or Have You Ever Used Any Other Forms Of Tobacco Or Nicotine? No Information not available 06/16/2021 Sex: Unknown Functional Status Question Answer Note LastModified by Organizat ion Details LastModified Time What is your exercise level? Heavy Heavy Amount of Exercise (4 or more times weekly) Information not available 03/07/2020 Mental Status None recorded. Family History Relationship Description Onset Age of this Age Resolved Age Notes LastModified by Organization Details LastModified Time Mother Essential hypertension High Blood Pressu re Not available 03/07/2020 10:50:41 Mother Depression NOS Depres cristiane/A nxiety Not available 03/07/2020 10:50:41 Mother Arthritis Arthri tis Not available 03/07/2020 10:50:41 Mother Thyroid disorder NOS Thyroi d Proble ms Not available 03/07/2020 10:50:41 Mother Asthma Asthma /Aller gies Not available 03/07/2020 10:50:41 Mother Disorder of eye Eye Diseas e Not available 03/07/2020 10:50:41 Mother Gastric ulcer Ulcers /Heart burn Not available 03/07/2020 10:50:41 Mother Gastric ulcer Ulcers /Heart burn Not available 03/07/2020 10:50:41 Father Disorder of body system Diabet es Not available 03/07/2020 10:50:41 Father Alzheimer's disease Alzhei cedric's/ Marii ia Not available 03/07/2020 10:50:41 Father Disorder of urinary bladder Kidney /Bladd er Proble ms Not available 03/07/2020 10:50:41 Father Disorder of eye Eye Diseas e Not available 03/07/2020 10:50:41 Father Cancer confirmed Other: CA-typ e ? Not available 03/07/2020 10:50:41 Medical History Condition Response GI- Colon Polyps N Endocrinology- Thyroid Problems N Gynecological History Statement/Question Response History of Endometriosis N History of Abnormal PAP N History of Recurrent Ovarian Cysts N Date of Last Mammogram 01/11/2023 Date of LMP 01/13/2016 History of Cervical Dysplasia N Menstrual Cycle Length (days) 28 Age at Menopause 56 Sexual Orientation Heterosexual Date of Last Diabetes Screening 07/07/20 16 History of Infertility N Date of last bone density Age at Menarche: 13 Date of Last Colonoscopy 08/01/2012 History of Sexually Transmitted Infectio n N HPV Vaccine Not Completed Current Control Method None History of Fibroids N Date of Last Pap Smear 08/26/2017 History of PCOS N Date of Last Cholesterol Screening 07/07 Obstetrics History GPAL:G 0 P 0 0 0 0 Type Value Multiple Births 0 Full Term 0 Induced 0 Spontaneous 0 Premature 0 Living 0 Ectopics 0 Total 0 Immunizations Vaccine Type Date Status Provider Name and Address Organization Details Recorded Time Influenza, split virus, trivalent, PF 06/14/2016 completed Not Available [facility] 03/07/2020 09:07:11 Past Encounters Encounter ID Performer Location Encounter Start Date Encounter Closed Date Diagnosis/Indication Diagnosis SNOMED-CT Code Diagnosis ICD10 Code [id number] ADAN PHILLIPS [id number] DAVID EUCEDA OD [address] [place] [phone] 06/16/2021 15:50:55 06/19/2021 12:35:08 Gynecologic examination 41727966 Z01.419 Hypothyroidism 73995102 E03.9 Backache 084365427 M54.9 Health Concerns Section Related Observation LastModified by Organization Detai ls LastModified Time None Recorded Concern Status LastModified by Organization Details LastModified Time None Recorded Advance Directives Directive N: Payers Encounter Date Sequence Insurance Name Policy Number Policy Mcbride Covered Member ID Mcbride Member ID Guarantor Name 06/16/2021 1 [place] [id number] Ivon Marinelli [id number] Ivon Agudelo Yves Notes Date Note Type Note Provider Name and Address Organization Details Recorded Time 06/16/2021 text/html HPI Notes: 61 ye ar old G0 presents to clinic for annual. Pap 2018 NILM. Mammogram 2020 normal. Colonoscopy 2012. Screening labs 2015. States PCP in the past several years, planning to establish w/ new PCP. Sexually active. Dyspareunia improved with coconut oil. No vaginal bleeding. Requests refill of prednisone, taking this BID x 5 days PRN for back pain every few months. Hypothyroid - inconsistent dosing of levothyroxine. Will miss for periods of time then take two tablets daily. Has not taken in several days. Frustrated with 20 lb weight gain in the past year. Admits inconsistent exercise - difficulty maintaining routine with pandemic and related closures. Had been going to gym 5 days per week prior to this. Enjoys resistance exercise and elliptical. Benign brain tumors, surveillance imaging every 3 year. Specialist discouraged use of HRT due to tumors. Had the flu several weeks ago. Lives in [place]. Remodeling bathroom. RENATA CASTILLO, ADAN [id number] [facility],[address], [place], [address], [place] [facility] [employer] 06/18/2021 00:30:48 OBGyn Episode No OBEpisode recorded.
--- OUTSIDE RECORDS SUMMARY | 2024-04-28 17:36 | XMS_ITS ---
Author Organization [facility] Address [address] [place] [address] [address] [place] [address] Care Team Providers Care Microwave Engineer Name Role Phone Yves Phill Primary Care Provider Geoff HERRERA, PhD, Gabino Unavailable Unavai Penelope Wilkerson Unavailable [phone] Encounters Encounter Location Date Provider Diagnosis [facility] [address] [place] [address] 03/19/2024 Penelope Jorgensen Pain in thoracic spine M54.6 and Unspecified thoracic, thoracolumbar and lumbosacral intervertebral disc disorder M51.9 Assessments Encounter Date Diagnosis (ICD Code) Assessment Notes Treat ment Notes Treatment Clinical Notes 03/19/2024 Pain in thoracic spine (ICD-10 - M54.6) 03/19/2024 Unspecified thoracic , thoracolumbar and lumbosacral intervertebral disc disorder (ICD-10 - M51.9) Plan Of Treatment No Information Progress Notes * Gilles DOUGLASB:1960 (64 yo F)Acc No.[id number]:03/19/2024 Daily Note Patient:?Ivon DOUGLAS Provider:?Penelope Jorgensen DPT :1960???Age:64 Y???Sex:Female D ate:03/19/2024 Phone: Address:[address] [place] [id number] Pcp:Phill Douglas Subjective: * Chief Complaints: * HPI: ???Therapy Visit Status:?Session Data?Date Reviewed?03/19/2024 ?Therapy Episode Status?Active ?Therapy Sessions Completed (#)?20 ?PT Goal Review Date?03/07/2024 ?OT Goal Review Date?12/28/2023 ???Therapy Visit Subjective:?Pt has been doing well since last session. Notes the weekend wasn't too bad in terms of Sx and today included. Discussed D/C today, pt has 1 more appt set up for this week, this may be D/C or she may make another one for the next week to D/C. She has a morro'd radiofrequency abalation (RFA) for next 03/29. Objective: * Vitals:? * Physical Examination:?Cervical Extension Positioning & Goals:?Positioning?Seat Height?530 ?TDC?51 ?CB?1.4 ?Seat Pad?1 inch pad ?Goals?Low Goal Female (Max 192)?192 ?High Goal Female (Max 222)?222 ???Cervical Extension Exercise Performance:?Exercise?Torque (in-lbs)?126 ?Extension ROM (0)?21 Pt did 21 degrees today, was a bit stiffer, did 18 degrees last time ?Flexion ROM (126)?108 ?Repetitions?30 ?RPE (0-10)?6.5 ?Last Rep Status?Met Exertion Goal, Met Repetition Goal ?Exercise Plan?2 x week ???Lumbar Extension Positioning & Goals:?Positioning?TDC?21 ?CB?150 ?Femur?4 ?Seat Pad?1 inch pad ?Goals?Low Goal Female >60age (40%BW)?55 ?High Goal Female>60age (60%BW, Max 150)?82 ???Lumbar Extension Exercise Performance:?Exercise?Torque (ft-lbs)?60 ?Extension ROM (0)?0 ?Flexion ROM (72)?60 ?Repetitions?26 ?Rating of Perceived Exertion (0-10)?9 ?Last Rep Status?Met Exertion Goal, Met Repetition Goal ?Exercise Plan?2 x week ???Torso Rotation Positioning & Goals:?Positioning?[place]?1.3 ?Footboard?1 ?Seat Pad?1 inch ?Back Pad?Back Pad 1 inch ?Other?Cervical Roll ?Goals?Low Goal Female >Age 60 (25%BW)?32 ?High Goal Female >Age 60 (30%BW, Max 60)?41 ???Torso Rotation Exercise Performance:?Exercise?Torque (ft-lbs)?35 ?Rotation Left (48)?42 ?Rotation Right (48)?42 ?Left Repetitions?26 ?Right Repetitions?26 ?RPE (0-10)?9.5 ?Last Rep Status?Met Exertion Goal, Met Repetition Goal ?Exercise Plan?2 x week ???Isotonic Exercise Machine Summary:?Exercise Summary?Increased load for CE today, pt performed at a lower ROM again today, notes that she was feeling some increased stiffness but no pain. Increased reps for LE & TR today while maintaining same weights as previous session. Pt is within goal range for TR & LE. Pt is nearing CE goal range but is still quite a bit below her low end range..?Billing?[id number] (Therapeutic Exercise) Direct 1:1 Time= 40 mins.? Therapeutic Interventions: * Therapeutic Interventions: ???1.?Home Exercise List: Stretches & Releases ? Neck Stretching HEP : Upper Trapezius, Levator Scapulae ? [id number] Stretching HEP : Pectorals- Doorway, Upper Body [...] Therapy Summary ? Movement Therapy Details : Went through scap exercises, reviewed & performed the following exercises, VC provided on performance:- Banded rows w/ green band (30#) x 20 reps- Banded lat pull downs w/ green band (30#) x 20 reps- Green theraband pull aparts x 20 reps - given green theraband to take home to add to HEP ? Billing : [id number] (Therapeutic Exercise) Direct 1:1 Time= 14 mins ? Assessment: * Therapy Assessment and Plan: 1.?Therapy Session Assessment ? Summary : Pt is doing well w/ HEP & progressions made in MedX machines. No major changes since last session, did mention she has a RFA schl'd for next 03/29. Discussed D/C, pt plans on D/C'ing in the next few sessions. Has another session for later this week and may make another one for next week or the week after. Increased reps for LE & TR today, increased load for CE. Went through scap strengthening exercises, increased band color to green for pull aparts. Only change that was made to HEP. 2.?Therapy Session Plan ? Plan Details : *Patient Valued Goals/Activities: standing, walking,*MD/ANIRUDH Follow Up Plan: after 4-6 weeks,*Visits Need Insurance Auth after: NA,* Incoming Referral Tracking - NO,Plan:- D/C in next 1-2 sessions- Go over gym equipment (pt goes to [employer]) & review what similar options she may have available in terms of LE & TR machines- Continue progressing MedX machines (CE/LE/RT) as tolerated - pt feels they have been getting more challenging- Progress/modify HEP flowsheet - finalize HEP ? * Assessment: 1.?Pain in thoracic spine - M54.6 (Primary)???2.?Unspecified thoracic, thoracolumbar and lumbosacral intervertebral disc disorder - M51.9??? Plan: * Treatment: * Procedure Codes:?81047 Thera peutic Exercise PT, Units: 4.00 , Modifiers: GP , Time (Mins): [id number] * Billing Information: * Visit Code:? * Procedure Codes:? 28819 Therapeutic Exercise PT. Units: 4.00. Time (Mins):54Modifiers: GP * Sign off status: Completed true * Provider:?Penelope Jorgensen DPT Date:? Generated for Sujey whyte/Rosalino/eTransmitting on:?04/28/2024 05:35 PM CDT History and Physical Notes * HPI (History of Present Illness) Category Sub-Category Detail Notes Therapy Visit Status Session Data Today's Session Date : 03/19/2024 Therapy Episode Status: Active Therapy Sessions Completed (#): 20 PT Goal Review Date: 03/07/2024 OT Goal Review Date: 12/28/2023 Physical Examination Category Sub-Category Detail Notes Lumbar Extension Exercise Performance Exercise Tor que (ft-lbs): 60 Extension ROM (0): 0 Flexion ROM (72): 60 Repetitions: 26 Rating of Perceived Exertion (0-10): 9 Last Rep Status: Met Exertion Goal, Met Repetition Goal Exercise Plan: 2 x week Lumbar Extension Positioning & Goals Positioning TDC: 21 CB: 150 Femur: 4 Seat Pad: 1 inch pad Goals Low Goal Female >60age (40%BW): 55 High Goal Female>60age (60%BW, Max 150): 82 Isotonic Exercise Machine Summary Billing [id number] (Therapeutic Exercise) Direct 1:1 Time= 40 mins Exercise Summary Increased load for C E today, pt performed at a lower ROM again today, notes that she was feeling some increased stiffness but no pain. Increased reps for LE & TR today while maintaining same weights as previous session. Pt is within goal range for TR & LE. Pt is nearing CE goal range but is still quite a bit below her low end range. Cervical Extension Positioning & Goals Positioning Se at Height: 530 TDC: 51 CB: 1.4 Seat Pad: 1 inch pad Goals Low Goal Female (Max 192): 192 High Goal Female (Max 222): 222 Cervical Extension Exercise Performance Exercise T orque (in-lbs): 126 Extension ROM (0): 21 Pt did 21 degrees today, was a bit stiffer, did 18 degrees last time Flexion ROM (126): 108 Repetitions: 30 RPE (0-10): 6.5 Last Rep Status: Met Exertio n Goal, Met Repetition Goal Exercise Plan: 2 x week Torso Rotation Positioning & Goals Positioning [place]: 1.3 Footboard: 1 Seat Pad: 1 inch Back Pad: Back Pad 1 inch Other: Cervical Roll Goals Low Goal Female >Age 60 (25%BW): 32 High Goal Female >Age 60 (30%BW, Max 60) : 41 Torso Rotation Exercise Performance Exercise Torqu e (ft-lbs): 35 Rotation Left (48): 42 Rotation Right (48): 42 Left Repetitions: 26 Right Repetitions: 26 RPE (0-10): 9.5 Last Rep Status: Met Exertion Goal, Met Repetition Goal Exercise Plan: 2 x week
--- OUTSIDE RECORDS SUMMARY | 2024-04-28 17:36 | XMS_ITS | Clinical Summary ---
Author Organization [facility] Address [address] [place] [address] Care Team Providers Care Farmworker Egg Producing Farm Name Role Phone Kamaljit Daley MD Unavailable [...] 63.5 kg (140 lb) 10/07/2022 8:04 AM DIRECTOR BUSINESS SYSTEMS Height 163 cm (5' 4.17) 10/07/2022 8:04 AM DIRECTOR BUSINESS SYSTEMS Body Mass Index 23.9 10/07/2022 8:04 AM DIRECTOR BUSINESS SYSTEMS Plan of Treatment Health Maintenance Due Date Last Done Comments ADVANCE CARE PLANNING 1960 ANNUAL REVIEW OF HM ORDERS 1960 CT COLONOGRAPHY 1960 FIT 1960 FLEX SIG 1960 GLUCOSE 1960 MAMMO SCREENING 1961 TSH W/FREE T4 REFLEX 1961 YEARLY PREVENTIVE VISIT 1961 sDNA (Cologuard) 1960 COLONOSCOPY 1971 COLORECTAL CANCER SCREENING 1971 HIV SCREENING 1976 HEPATITIS C SCREENING 1979 PAP 1982 LIPID 2001 PHQ-2 (once per calendar year) 2023 11/02/2022, 10/07/2022 COVID-19 Vaccine ( - 2023- season) 2024 INFLUENZA VACCINE (#1) 2024 9, 05/11/2014, 06/18/2013, Additional history exists DTAP/TDAP/TD IMMUNIZATION (3 - Td or Tdap) 07/27/2031 07/27/2021, 06/24/2010 RSV VACCINE (1 - 1-dose 75+ series) 2036 ZOSTER IMMUNIZATION Completed 08/13/2019, 9 HPV IMMUNIZATION Aged Out No longer e ligible based on patient's age to complete this topic MENINGITIS IMMUNIZATION Aged Out No l onger eligible based on patient's age to complete this topic Pneumococcal Vaccine: Pediatrics (0 to 5 Years) and At-Risk Patients (6 to 64 Years) Aged Out No longer eligible based on patient's age to complete this topic RSV MONOCLONAL ANTIBODY Aged Out No l onger eligible based on patient's age to complete this topic Care Teams Farmworker [employer] Relationship Specialty Start Date End Date Kamaljit Daley MD [address] [place] [address] Assigned Musculoskeletal Provider 10/16/22
[2024-04-28 17:40] VITALS: BP 132/74; PULSE 74; RESP 14; TEMP 36.3; O2SAT 98; BMI 22.0
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
--- OUTSIDE RECORDS SUMMARY | 2024-04-28 18:48 | XMS_ITS | Clinical Summary ---
Author Organization [facility] Address [address] [place] [address] Care Team Providers Care Wound/Ostomy Nurse Name Role Phone Kamaljit Daley MD Unavailable [...] 63.5 kg (140 lb) 10/07/2022 8:04 AM TABLE GAMES DUAL RATE SUPERVISOR Height 163 cm (5' 4.17) 10/07/2022 8:04 AM TABLE GAMES DUAL RATE SUPERVISOR Body Mass Index 23.9 10/07/2022 8:04 AM TABLE GAMES DUAL RATE SUPERVISOR Plan of Treatment Health Maintenance Due Date [...] age to complete this topic Care Teams Wound/Ostomy Nurse Relationship Specialty Start Date End Date Kamaljit Daley MD [address] [place] [address] Assigned Musculoskeletal Provider 10/16/22
--- OUTSIDE RECORDS SUMMARY | 2024-04-28 18:48 | XMS_ITS | Referral Summary ---
Author Organization [facility] Address [address] [place] [address] Care Team Providers Care 8Th Grade Teacher Name Role Phone Kamaljit Daley MD Unavailable [phone] Allergies Active Allergy Reactions Criticality Noted Date [...] 63.5 kg (140 lb) 10/07/2022 8:04 AM TELEMEDICINE PHYSICIAN Height 163 cm (5' 4.17) 10/07/2022 8:04 AM TELEMEDICINE PHYSICIAN Body Mass Index 23.9 10/07/2022 8:04 AM TELEMEDICINE PHYSICIAN Plan of Treatment Not on file Care Teams 8Th Grade Teacher Relationship Specialty Start Date End Date Kamaljit Daley MD [address] [place] [address] Assigned Musculoskeletal Provider 10/16/22
--- OUTSIDE RECORDS SUMMARY | 2024-04-28 18:49 | XMS_ITS | Clinical Summary ---
Author Organization [facility] Address [place], [place] [address] Care Team Providers Care Ingredient Mixer Name Role Phone [facility] Primary Care Provider Unavailabl e Allergies [...] 4 % cream 04/29/2021 Ac tive vit C,M-Yw-rlnpl-lutein-ze axan (PreserVision AREDS-2) capsule Take 1 Capsule [...] Comments Blood Pressure 118/70 06/20/2023 2:42 PM [employer] Pulse 76 06/20/2023 2:42 PM [employer] Temperature 36.6 ??C (97.8 ??F) 12/29/2021 12:48 PM C DT Respiratory Rate 16 03/30/2023 10:34 AM CDT Oxygen Saturation 94% 06/20/2023 2:42 PM [employer] Inhaled Oxygen Concentration - - Weight 60.6 kg (133 lb 9.6 oz) 06/20/2023 2:42 P M [employer] Height 165.1 cm (5' 5) 03/30/2023 10:34 AM CDT Body Mass Index 22.23 03/30/2023 10:34 AM CDT Plan of Treatment Health Maintenance Due Date Last Done Comments HIV for age 15-65 1976 Pap test for age 21-65 08/09/2016 4, 01/29/2009 (Completed outside of [facility]) Depression screening for age 12+ 09/20/2023 09/20/2022, [...] booster 07/27/2031 07/27/2021, 11/29 (Completed outside of [facility]), 06/24/2010 Tdap Completed 06/24/2010 Zoster (shingles) series [...] SDNA-FIT EXTERNAL (COLOGUARD) Routine 07/13/2023 6:15 AM [employer] Screening for colon cancer LC LIPID PANEL AND CHOL/HDL RATIO Routine 09/16/2022 4:27 PM [employer] Hypertriglyceridemia ANTI HCV Routine 07/27/2021 11:15 AM [employer] Need for hepatitis C screening test from [...] health insurance. Recommendations are based on the [employer] Appropriateness Criteria. Patients with a BI-RADS category of 0 should follow the recommendations for further evaluation before considering supplemental screening. Narrative 01/20/2024 8:48 AM CDT EXAM: MAMMOGRAM SCREENING THIERRY BILATERAL LOCATION: [facility] DATE: 01/19/2024 INDICATION: Asymptomatic. Screening Mammogram. COMPARISON: 01/11/23, 12/16/21 BREAST DENSITY: There are scattered areas of fibroglandular density. FINDINGS: Tomosynthesis craniocaudal and mediolateral oblique views were obtained. There is no evidence for spiculated masses, architectural distortion, asymmetry or suspicious calcifications. Procedure Note Raul Clemente MD - 01/20/2024 EXAM: MAMMOGRAM SCREENING THIERRY BILATERAL LOCATION: [facility] DATE: 01/19/2024 INDICATION: Asymptomatic. Screening Mammogram. COMPARISON: [...] health insurance. Recommendations are based on the [employer] Appropriateness Criteria. Patients with a BI-RADS category of 0 should follow the recommendations for further evaluation before considering supplemental screening. Alycia Senior DO MAMMO * SDNA-FIT EXTERNAL (COLOGUARD) (07/13/2023 6:15 AM [employer]) NONINV COLON CA DNA+OCC BLD SCRN STL-IMP Negative Negative 07/20/2023 12:09 AM [employer] (CLIA #:[id number]) Comment: NEGATIVE TEST RESULT. A negative Cologuard [...] cancer. ??Following a negative Cologuard result, the [place] Cancer Society and U.S. Multi-Society Task Force screening guidelines recommend a Cologuard re-screening interval of 3 years. References: [place] [employer] Guideline for Colorectal Cancer Screening: https://www.cancer.org/cancer/oativ-sofjhh-pircol/pgrqhsgst-htqucsycg-vvjczhj/ac s-rec ommendations.html.; Christiano RUTHERFORD, Tyesha MAYBERRY, Barry HILL, Colorectal Cancer Screening: Recommendations for Physicians and Patients from the U.S. Multi-Society Task Force on Colorectal Cancer Screening , Am J Gastroenterology 2017; 112:3062-0217. TEST DESCRIPTION: Composite algorithmic analysis of stool [...] Loza et al, N Engl J Med 2014;370(14):5600-4742.) Cologuard may produce a false negative or false positive result (no colorectal cancer or precancerous polyp present at colonoscopy follow up). A negative Cologuard test result does not guarantee the absence of CRC or advanced adenoma (pre-cancer). The current Cologuard screening interval is every 3 years. ([place] Cancer Society and U.S. Multi-Society Task Force). Cologuard performance data in a 10,000 patient pivotal study using colonoscopy as the reference method can be accessed at the following location: www.Tapestry/results. Additional description of the Cologuard test process, warnings and precautions can be found at www.TextualAdsrd.com. Stool specimen (specimen) (Rectum) 07/13/2023 6:15 AM [employer] 07/14/2023 6:44 PM [employer] Alycia Senior DO URINE [employer] (CLIA #:[id number]) [place] [address], * (ABNORMAL) LC LIPID PANEL AND CHOL/HDL RATIO (09/16/2022 4:27 PM [facility]) [facility] Cholesterol, Total 175 100 - 199 mg/dL 09/18/2022 11:08 AM [facility] Triglycerides 154(H) 0 - 149 mg/dL 09/18/2022 11:08 AM [facility] HDL Cholesterol 50 >39 mg/dL 11:08 AM [facility] VLDL Cholesterol Shawn 27 5 - 40 mg/dL 09/18/2022 11:08 AM [facility] LDL Chol Calc ([facility]) 98 0 - 99 mg/dL 09/18/2022 11:08 AM [facility] T. Chol/HDL Ratio 3.5 0.0 - 4.4 ratio 09/18/2022 11:08 AM [facility] Comment: ?T. Chol/HDL Ratio ?Men ??Women ?1/2 Avg.Risk ??3.4 ?3.3 ?Avg.Risk ??5.0 ?4.4 ? 2X Avg.Risk ??9.6 ?7.1 ? 3X Avg.Risk 23.4 ?? 11.0 Blood BLOOD SPECIMEN / Unknown Venipuncture / Unknown 09/16/2022 4:27 PM [employer] 09/16/2022 4:27 PM [employer] Narrative [facility] - 09/18/2022 11:08 AM [employer] Performed at: ??01 - [facility] [place], [place] [id number] [employer] D[employer]: Escobar Ariza MD, Phone: ??[phone] Alycia Senior DO SEND OUTS [facility] ([facility]) [address] [place] [address] * ANTI HCV (07/27/2021 11:15 AM [employer]) HEPATITIS C ANTIBODY Non-React polina Non-React polina 07/27/2021 3:34 PM [employer] [facility] Comment:Antibodies to HCV no t detected; does not exclude the possibility of exposure to HCV. Blood BLOOD SPECIMEN / Unknown Venipuncture / Unknown 07/27/2021 11:15 AM [employer] 07/27/2021 11:15 AM [employer] Alycai Senior DO [facility]S [facility] [address] [place] [address], [place] from Last 3 Months or Most Recently Relevant to Health Maintenance Care Teams Ingredient Mixer Relationship Specialty Start Date End Date [facility] PCP - General 11/07/17
== END 2024-04-28 18:56 | disposition home or self-care (01) ==
LOC: ED 18:46
PROVIDERS: Emergency Provider Emergency Medicine Emergency Medical Services
DX: S16.1XXA Strain of muscle, fascia and tendon at neck level, initial encounter (principal); V42.5XXA Car driver injured in collision with two- or three-wheeled motor vehicle in traffic accident, initial encounter
CPT/HCPCS: 99283; 99284